=== PATIENT | female | born 1965 | race Caucasian/White ===

== ENCOUNTER 2024-05-06 09:23 | Outpatient (REF) | payer OTHER, SELFPAY ==
[2024-05-06 18:13] LABS: MANUAL DIFF FLAG NO
[2024-05-06 18:30] LABS: Alanine Aminotransferase 23 U/L (0-31); Aspartate Amino Transferase 28 U/L (5-31); Basophils Percent Auto 0.7 % (0-2); C Reactive Protein < 0.10 mg/dL (< or = 0.50); Eosinophils Absolute Auto 0.1 X10*3/uL (0.0-0.4); Eosinophils Percent Auto 1.3 % (0-4); Estimated Glomerular Filt Rate > 60; Hematocrit 40.7 % (37.0-47.0); Hemoglobin 13.2 g/dl (12.0-16.0); Imm Gran Abs Auto 0.01 X10*3/uL (0.00-0.03); Imm Gran Pct Auto 0.2 % (0.0-0.4); Lymphocytes Absolute Auto 1.9 X10*3/uL (1.2-4.9); Lymphocytes Percent Auto 33.8 % (20-40); Mean Corpuscular HGB Conc 32.4 g/dl (31.0-35.0); Mean Corpuscular Volume 89.5 fL (80.0-98.0); Monocytes Absolute Auto 0.6 X10*3/uL (0.1-1.2); Monocytes Percent Auto 10.3 % (2-11); Neutrophils Percent Auto 53.7 % (45-73); Platelet Count 211 X10*3/uL (160-400); Red Blood Count 4.55 X10*6/uL (4.20-5.50); Red Cell Distribution Width 13.3 % (11.0-16.0); White Blood Count 5.5 X10*3/uL (4.8-10.8)
[2024-05-06 19:38] LABS: Erythrocyte Sedimentation Rate 9 MM/HR (0-20)
== END 2024-05-06 09:24 | disposition home or self-care (01) ==
LOC: HO.HKASLDS 09:23
PROVIDERS: PCP Internal Medicine; Visit Provider Internal Medicine Rheumatology
DX: M19.049 Primary osteoarthritis, unspecified hand (principal); Z79.60 Long term (current) use of unspecified immunomodulators and immunosuppressants
CPT/HCPCS: 36415; 82565; 84450; 84460; 85025; 85652; 86140; 99212

== ENCOUNTER 2024-05-06 09:23 | Outpatient (AMB) | payer OTHER, SELFPAY ==
--- OUTSIDE RECORDS SUMMARY | 2024-05-06 09:38 | XMS_ITS | Patient Health Record ---
Author Organization [facility] Address [address] [place] [address] Care Team Providers Care Aircraft Inspection Record Clerk Name Role Phone Bonnie Nicole Primary Care Provider UnavailAisha Howard Unavailable [phone] Reason For Referral No Information Encounters Encounter Location Date Provider Diagnosis [facility] [address] [place] [address] 05/20/2023 Aisha Hill Plan Of Treatment No Information
--- OUTSIDE RECORDS SUMMARY | 2024-05-06 09:38 | XMS_ITS ---
Author Organization [facility] Address [address] [place] [address] Care Team Providers Care Fisher Mussel Name Role Phone Bonnie Nicole Primary Care Provider Unavailabl Aisha Schaeffer [phone] Encounters Encounter Location Date Provider Diagnosis [address] [place] [address] 07/01/2023 Aisha Hill Plan Of Treatment No Information Progress Notes * REMYHugh MCKAYGisselOB:1965 (58 yo F)Acc No.[id number]:07/01/2023 Progress Notes Patient:?Lynn IGNACIO Provider:?Aisha Hill DPM :1965???Age:57 Y???Sex:Female D ate:07/01/2023 Phone: Address:[address] [place] [address], [place] Pcp:Bonnie Nicole Subjective: * Chief Complaints: * ??? * Medical History:? Objective: * Vitals:? Assessment: Plan: * Treatment: * Images: * The named appointment provid er may or may not be the originator of this progress note, and it is not deemed complete until electronically signed by the appointment provider. Sign off status: Pending * Provider:?Aisha Hill DPM Date:?2023 Generated for Deedee king/Lashay/Dandresmitting on:?05/06/2024 09:38 AM EST
--- OUTSIDE RECORDS SUMMARY | 2024-05-06 09:38 | XMS_ITS ---
Author Organization [facility] Address [address] [place] [address] Care Team Providers Care Manager User Interface Name Role Phone Bonine Nicole Primary Care Provider Unavailabl e Black, Aisha Unavailable [phone] REASON FOR VISIT cx 07/01/2023 INSTRUCTIONAL SUPPORT ASSISTANT appt Encounters Encounter Location Date Provider Diagnosis [facility] [address] [place] [address] 05/20/2023 Aisha Black Plan Of Treatment No Information Progress Notes * Shine IGNACIOOB:1965 (57 yo F)Acc No.[id number]:05/20/2023 Patient:?Lynn Ignacio :1965???Age:57 Y???Sex:Female Phone: Address:[address] [place] [address], [place], [address] * true * Date:? Generated for Brooki christine/Lashay/eTransmitting on:?05/06/2024 09:38 AM EST
--- NOTE | 2024-05-06 09:42 | MHC.OFFVIS ---
Vital Signs 05/06/24 09:44 Height 5 ft 8 in Weight 148 lb BMI 22.5 BP 110/66 Blood Pressure Location Lt brachial Position Sitting Pulse 82 Pulse Source Pulse Oximeter Pulse Oximetry (%) 96 Oxygen Delivery Method Room Air Intake Visit Reasons: arthritis Intake Note: Patient presents for follow up on osteoarthritis. Allergies cefaclor [From Ceclor] Allergy (Mild, Verified 05/06/24 09:49) Rash cillins Allergy (Mild, Uncoded 05/06/24 09:49) Hives scopalamine Allergy (Mild, Uncoded 05/06/24 09:49) deliriam HPI HPI arthritis: Details: She is having pain everywhere. She lost 40 lb with zip bound. Increased pain in her shoulders, elbows, PIP knees and thumbs. She had no benefit with restarting Celebrex 200 mg twice a day. She has not started aquatic therapy but plans to. She reports in the past she was on gabapentin 800 mg 3 times a day but it was reduced to 600 mg twice a day. She did not tolerate it 800 mg twice a day due to increase fatigue during the day. Lyrica or duloxetine caused hand swelling. She currently he is in the process of getting a new PCP. [facility] Surgical History (Updated 05/06/24 @ 09:56 by Rach Lopez [facility]) S/P foot surgery, right H/O: hysterectomy H/O neck surgery Previous back surgery Review of Systems Const All systems reviewed & are unremarkable except as noted in HPI and below Physical Exam Vital Signs: Last Vital Signs Pulse 82 05/06/24 09:44 BP 110/66 05/06/24 09:44 Pulse Ox 96 05/06/24 09:44 Oxygen Delivery Method Room Air 05/06/24 09:44 BMI result Body Mass Index 22.5 Const Other: General: Comfortable CVS: RRR Respiratory: clear to auscultation bilaterally. Good respiratory effort Skin: No lesions seen MSK: Diffuse allodynia of all extremities. No synovitis. Tender PIP bilateral. Shoulder abduction 170 degree bilateral. She has good internal external rotation. Bilateral trochanteric bursitis found. Limited full external rotation of bilateral hips due to pain. Preserved range of motion of knees. Assessment & Plan Assessment & Plan (1) Osteoarthritis, hand, primary localized: Comment: Uncontrolled on Celebrex. Code(s): M19.049 - Primary osteoarthritis, unspecified hand Category: Medical Qualifiers: Laterality: unspecified laterality Qualified Code(s): M19.049 - Primary osteoarthritis, unspecified hand Plan: Change Celebrex to nabumetone 500 mg twice a day with food. If she does not find benefit on current dose of nabumetone, she will call office. I will then increase dose of nabumetone to 750 mg twice a day Labs for drug monitoring on chronic NSAID due today Return to clinic in 3 months (2) Fibromyalgia: Comment: Uncontrolled. Diffuse allodynia is consistent with pain from fibromyalgia. She is currently on gabapentin. She is in the process of getting a new PCP. Code(s): M79.7 - Fibromyalgia Category: Medical Plan: She will continue gabapentin 600 mg in the morning. I will increase gabapentin evening dose to 800 mg PCP follow-up for consideration of neuropsychiatric medication that is indicated for fibromyalgia management. Combination treatment with gabapentin can be effective. She will resume aquatic therapy. We discussed the importance of exercise but not being too aggressive with it to control fibromyalgia Return to clinic in 3 months (3) Polymyalgia rheumatica: Comment: In remission off of prednisone. Code(s): M35.3 - Polymyalgia rheumatica Category: Medical Plan: Monitoring clinically. I have ordered ESR and CRP level Return to clinic in 3 months Orders: Orders C Reactive Protein 05/06/24 M19.049 - Primary osteoarthritis, unspecified hand Alanine Aminotransferase 05/06/24 Z79.60 - senior living (current) use of unspecified immunomodulators and immunosuppressants Aspartate Amino Transferase 05/06/24 Z79.60 - remote computer terminal operator (current) use of unspecified immunomodulators and immunosuppressants Creatinine 05/06/24 Z79.60 - remote computer terminal operator (current) use of unspecified immunomodulators and immunosuppressants Complete Blood Count Auto Diff 05/06/24 Z79.60 - senior living (current) use of unspecified immunomodulators and immunosuppressants Erythrocyte Sedimentation Rate 05/06/24 M19.049 - Primary osteoarthritis, unspecified hand Medications: New gabapentin Take 1 tablet daily at bedtime. She has 600mg tablet to take in the morning. 800 mg PO BEDTIME 30 tabs 2RF nabumetone Take it with food 500 mg PO BID 60 tabs 2RF Coding Level of Care Code Est Pt Level 4 (00735) Complex EM visit Add On G2211 Diagnoses Localized, primary osteoarthritis of hand, unspecified laterality M19.049 Laterality: unspecified laterality Fibromyalgia M79.7 Polymyalgia rheumatica M35.3
[2024-05-06 09:44] VITALS: BP 110/66; PULSE 82; O2SAT 96; BMI 22.5
== END 2024-05-06 10:47 | disposition home or self-care (01) ==
PROVIDERS: PCP Internal Medicine; Visit Provider Internal Medicine Rheumatology
DX: M19.049 Primary osteoarthritis, unspecified hand (principal); M79.7 Fibromyalgia; M35.3 Polymyalgia rheumatica
CPT/HCPCS: 99214; G2211

== ENCOUNTER 2024-08-05 08:50 | Outpatient (AMB) | payer OTHER, SELFPAY ==
--- NOTE | 2024-08-05 08:52 | MHC.OFFVIS ---
Vital Signs 08/05/24 08:54 Height 5 ft 8 in Weight 164 lb 4 oz BMI 25.0 BP 106/70 Pulse 83 Pulse Source Pulse Oximeter Pulse Oximetry (%) 100 Oxygen Delivery Method Room Air Intake Visit Reasons: 3mon follow-up Intake Note: Patient presents for follow up on osteoarthritis. Allergies cefaclor [From Ceclor] Allergy (Mild, Verified 08/05/24 08:55) Rash cillins Allergy (Mild, Uncoded 05/06/24 09:49) Hives scopalamine Allergy (Mild, Uncoded 05/06/24 09:49) deliriam HPI HPI 3mon follow-up: Details: Nabumatone and increase in gabapatient helped. COntinues to have left shoulder pain with nocturnal pain. Goes to aquatic therapy. No PMR or GCA symptoms PFSH Surgical History S/P foot surgery, right H/O: hysterectomy H/O neck surgery Previous back surgery Review of Systems Const All systems reviewed & are unremarkable except as noted in HPI and below Physical Exam Vital Signs: Last Vital Signs Pulse 83 08/05/24 08:54 BP 106/70 08/05/24 08:54 Pulse Ox 100 08/05/24 08:54 Oxygen Delivery Method Room Air 08/05/24 08:54 BMI result Body Mass Index 25.0 Const Other: General: Comfortable CVS: RRR Respiratory: clear to auscultation bilaterally. Good respiratory effort Skin: No lesions seen MSK: No synovitis. Shoulder abduction 170 degree bilateral. Left shoulder anterior pain and subacromial region. She has good internal external rotation. Bilateral trochanteric bursitis found. Limited full external rotation of bilateral hips due to pain. Preserved range of motion of knees. Office Procedures AMB Joint Injection/Aspiration Joint Injection/Aspiration Details: Left shoulder subacromial bursa Prep: site was prepped using aseptic technique Injected: 40 mg of, Kenalog, with 1 mL of and 1% plain lidocaine Procedure: The patient tolerated the procedure well. Postprocedure protocol was discussed with patient. Coding 25210 - Large joint Procedure code (CPT) selection complete AMB Joint Injection/Aspiration Joint Injection/Aspiration Details: Left shoulder joint Prep: site was prepped using aseptic technique Injected: 40 mg of, Kenalog, with 1 mL of and 1% plain lidocaine Procedure: The patient tolerated the procedure well. Postprocedure protocol was discussed with patient. Coding 17834 - Large joint Procedure code (CPT) selection complete Office Meds lidocaine (PF) 10 mg/mL (1 %) injection solution Performing Provider: Dany Mayer MD Performing Location: [facility] [place] [facility] Administered by: Dany Mayer MD on 08/05/24 21:57 Dose Route Admin Location Dispensed Lot Number Expiration Date [facility] [employer] 10 mg Infiltration 2 mL [id number] [employer] Kenalog 40 mg/mL suspension for injection Performing Provider: Dany Mayer MD Performing Location: [facility] [place] [facility] Administered by: Dany Mayer MD on 08/05/24 21:57 Dose Route Admin Location Dispensed Lot Number Expiration Date [place] [employer] 40 mg intrabursal 1 mL [id number] [facility] lidocaine (PF) 10 mg/mL (1 %) injection solution Performing Provider: Dany Mayer MD Performing Location: [facility] [place] [facility] Administered by: Dany Mayer MD on 08/05/24 21:57 Dose Route Admin Location Dispensed Lot Number Expiration Date [facility] Project [employer] 10 mg Infiltration 2 mL [id number] [employer] Kenalog 40 mg/mL suspension for injection Performing Provider: Dany Mayer MD Performing Location: [facility] [place] [facility] Administered by: Dany Mayer MD on 08/05/24 21:57 Dose Route Admin Location Dispensed Lot Number Expiration Date [facility] Project [employer] 40 mg intra-articular 1 mL [id number] [employer] Assessment & Plan Assessment & Plan (1) Subacromial bursitis of left shoulder joint: Comment: Pain is uncontrolled. Code(s): M75.52 - Bursitis of left shoulder Category: Medical Plan: Patient received cortisone injection to left subacromial bursa Continue nabumetone 500 mg twice a day Return to clinic in 3 months (2) Tendinitis of left rotator cuff: Comment: Pain is uncontrolled Code(s): M75.82 - Other shoulder lesions, left shoulder Category: Medical Plan: Patient received cortisone injection to left glenohumeral joint Continue nabumetone 500 mg twice a day Return to clinic in 3 months (3) intermediate project manager (current) use of non-steroidal anti-inflammatories (nsaid): Code(s): Z79.1 - intermediate project manager (current) use of non-steroidal anti-inflammatories (NSAID) Category: Medical Plan: Continue nabumetone 500 mg twice a day Labs for drug monitoring on chronic NSAID ordered Return to clinic in 3 months (4) Polymyalgia rheumatica: Comment: In remission off of prednisone. 04/2024 inflammatory markers normal. Code(s): M35.3 - Polymyalgia rheumatica Category: Medical Plan: Monitor clinically Inflammatory markers ordered Return to clinic in 3 months (5) Fibromyalgia: Comment: Better controlled with higher dose of gabapentin and changing NSAID from Celebrex to nabumetone. She continues to have diffuse allodynia on exam. I recommend that she follow up with PCP for further management and improved control with consideration of up titration of gabapentin as she tolerates. Code(s): M79.7 - Fibromyalgia Category: Medical Plan: Defer to PCP Orders: Orders Alanine Aminotransferase Today M75.52 - Bursitis of left shoulder, M75.82 - Other shoulder lesions, left shoulder Aspartate Amino Transferase Today Z79.1 - longterm (current) use of non-steroidal anti-inflammatories (NSAID) AMB Joint Injection/Aspiration Today M75.82 - Other shoulder lesions, left shoulder Creatinine Today Z79.1 - intermediate project manager (current) use of non-steroidal anti-inflammatories (NSAID) Erythrocyte Sedimentation Rate Today Z79.899 - Other watermaster (current) drug therapy C Reactive Protein Today Z79.899 - Other watermaster (current) drug therapy AMB Joint Injection/Aspiration Today M75.52 - Bursitis of left shoulder XR shoulder LT min 2V Today M75.82 - Other shoulder lesions, left shoulder XR shoulder RT min 2V Today M75.82 - Other shoulder lesions, left shoulder Medications: New lidocaine (PF) 10 mg Infiltration ONCE 1 mL 0RF M75.82 - Other shoulder lesions, left shoulder Kenalog (triamcinolone acetonide) 40 mg intra-articular ONCE 1 mL 0RF NS M75.82 - Other shoulder lesions, left shoulder lidocaine (PF) 10 mg Infiltration ONCE 1 mL 0RF M75.52 - Bursitis of left shoulder Kenalog (triamcinolone acetonide) 40 mg intrabursal ONCE 1 mL 0RF NS M75.52 - Bursitis of left shoulder Refilled nabumetone Take it with food 500 mg PO BID 60 tabs 2RF Coding Level of Care Code Est Pt Level 4 (12562) Complex EM visit Add On G2211 Diagnoses Subacromial bursitis of left shoulder joint M75.52 Tendinitis of left rotator cuff M75.82 intermediate project manager (current) use of non-steroidal anti-inflammatories (nsaid) Z79.1 Polymyalgia rheumatica M35.3 Fibromyalgia M79.7 CPT Codes Coding - 08187 Large joint: 95722 - Large joint ([id number]) Coding - 80065 Large joint: 16374 - Large joint ([id number])
[2024-08-05 08:54] VITALS: BP 106/70; PULSE 83; O2SAT 100; BMI 25.0
--- OUTSIDE RECORDS SUMMARY | 2024-08-05 09:17 | XMS_ITS | Clinical Summary ---
Author Organization [facility] Address [address] [id number] Care Team Providers Care Ebd Special Education Teacher Name Role Phone Unavailable Primary Care Provider Unavailabl e Social History Tobacco Use Types Packs/Day Years Used Date Smoking Tobacco: Never Assessed Comments Unknown Sex and Gender Information Value Date Recorded Sex Assigned at Not on file Legal Sex Female 2:49 AM EDT Gender Identity Not on file Sexual Orientation Not on file Plan of Treatment Health Maintenance Due Date Last Done Comments Hepatitis C Screening 1964 Pap Smear 1980 DTaP/Tdap/Td (1 - Tdap) 1982 Hep B (1 of 3 - 19+ 3-dose series) 08/10/1983 Mammogram/Breast Imaging 2004 Pneumococcal 50+ years (1 of 1 - PCV) 2014 Zoster (Shingrix) (1 of 2) 2014 COVID-19 Vaccine (2023-2 5 season) 2023 Influenza (#1) 2023 HPV Vaccine Aged Out No longer eligi ble based on patient's age to complete this topic Hep A Aged Out No longer eligi ble based on patient's age to complete this topic Hib Aged Out No longer eligi ble based on patient's age to complete this topic Meningococcal ACWY Aged Out No longer eligible based on patient's age to complete this topic
--- OUTSIDE RECORDS SUMMARY | 2024-08-05 09:18 | XMS_ITS | Referral Summary ---
Author Organization [facility] Address [address] [place] [address] Care Team Providers Care Lubricating Engineer Name Role Phone Bonnie Nicole Primary Care Provider [phone] Allergies Active Allergy Reactions Criticality Noted Date Comments Amoxicillin Unknown 07/21/2023 Cefaclor Rash Metronidazole Rash Penicillins Rash Scopolamine Rash Medications PARoxetine (PAXIL) 40 mg tablet Take 40 mg by mouth every morning. Active gabapentin (NEURONTIN) 600 mg tablet Take 600 mg by mouth 2 times a day. 07/08/2023 Active celecoxib (CeleBREX) 200 mg capsule Take 200 mg by mouth 2 times a day. 06/03/2023 Active zolpidem (AMBIEN) 5 mg tablet Take 5 mg by mouth nightly as needed. Active metoprolol succinate XL (TOPROL XL) 50 mg tablet Take 50 mg by mouth once a day. 06/27/2023 Active omeprazole (PriLOSEC) 40 mg capsule Take 40 mg by mouth once a day. Active cholecalciferol (VITAMIN D3) 2,000 unit capsule Take 1 capsule by mouth once a day. 12/15/2014 Active traMADoL (ULTRAM) 50 mg tablet Take 50 mg by mouth every 6 hours as needed. 06/25/2023 Active magnesium gluconate (MAGONATE) 27 mg magnesium (500 mg) tablet Take 500 mg by mouth once a day. Active Active Problems Problem Noted Date Diagnosed Date Leg mass, left 07/21/2023 Cervical radiculopathy at C7 02/11/2014 Cervical segment dysfunction 02/11/2014 Cervical spondylosis 02/11/2014 Carpal tunnel syndrome, right 02/11/2014 Social History Tobacco Use Types Packs/Day Years Used Date Smoking Tobacco: Never Smokeless Tobacco: Never Tobacco Cessation:Counseling Given: Not Answered Comments:: Alcohol Use Standard Drinks/Week Comments Yes 0 (1 standard drink = 0.6 oz pur e alcohol) Comments Unknown Sex and Gender Information Value Date Recorded Sex Assigned at Female 04/28/2023 9:19 AM EST Legal Sex Female 12:11 AM EDT Gender Identity Female 04/28/2023 9:19 AM EST Sexual Orientation Straight 04/28/2023 9: 19 AM EST Last Filed Vital Signs Vital Sign Reading Time Taken Comments Blood Pressure 118/68 07/21/2023 1:54 PM EDT Pulse 86 07/21/2023 1:54 PM EDT Temperature 36.1 ??C (96.9 ??F) 07/21/2023 1:54 PM ED T Respiratory Rate - - Oxygen Saturation 98% 07/21/2023 1:54 PM EDT Inhaled Oxygen Concentration - - Weight 96.2 kg (212 lb) 07/21/2023 1:54 PM EDT Height 172.7 cm (5' 8 ) 07/21/2023 1:54 PM EDT Body Mass Index 32.23 07/21/2023 1:54 PM EDT Plan of Treatment Not on file Insurance [facility] Care Teams Lubricating Engineer Relationship Specialty Start Date End Date Bonnie Nicole [address] [place] [address] PCP - General 04/15/23
--- OUTSIDE RECORDS SUMMARY | 2024-08-05 09:18 | XMS_ITS | Clinical Summary ---
Author Organization [facility] Address [address] [place] [address] Care Team Providers Care Live Games Dealer Name Role Phone Unknown, Primary Care Provider Unavailabl e Social History Tobacco Use Types Packs/Day Years Used Date Smoking Tobacco: Never Assessed Sex and Gender Information Value Date Recorded Sex Assigned at Not on file Gender Identity Not on file Sexual Orientation Not on file Job Start Date Occupation Industry Not on file Not on file Not on file Plan of Treatment Health Maintenance Due Date Last Done Comments Hepatitis B Vaccines (1 of 3 - 3-dose series) 1965 Hepatitis C Screening 1964 COVID-19 Vaccine (#1) 02/08/1965 Depression Screening 1976 Preventative Health Evaluation 1982 Cervical Cancer Screening (Pap Smear) 1985 Colon Cancer Screening (Colonoscopy) 2009 Breast Cancer Screening (Mammogram) 2014 Shingrix-Zoster Vaccine (1 of 2) 2014 DTap / Tdap / Td (2 - Td or Tdap) 04/28/2020 04/28/2010 Influenza Vaccine (#1) 2023 , 02/19/2020, 03/01/2019, Additional history exists Pneumococcal Vaccine Aged Out No long er eligible based on patient's age to complete this topic RSV Ped < 20 months Aged Out No longe r eligible based on patient's age to complete this topic Care Teams Live Games Dealer Relationship Specialty Start Date End Date Unknown, PCP - General 01/07/23
--- OUTSIDE RECORDS SUMMARY | 2024-08-05 09:18 | XMS_ITS | Patient Health Record ---
Author Organization [facility] Address [address] [place] [address] Care Team Providers Care Medical Device Assembler Name Role Phone Bonnie Nicole Primary Care Provider Unavailabl e Black, Aisha Unavailable [phone] Reason For Referral No Information Plan Of Treatment No Information
--- OUTSIDE RECORDS SUMMARY | 2024-08-05 09:18 | XMS_ITS | Clinical Summary ---
Author Organization [facility] Address [address] [place] [address] Care Team Providers Care Gold Beater Name Role Phone Bonnie Nicole Primary Care Provider [phone] Allergies Active Allergy Reactions Criticality Noted Date [...] spondylosis 02/11/2014 Carpal tunnel syndrome, right 02/11/2014 Family History Medical History Relation Name Comments Breast cancer Maternal Grandmother Breast cancer Mother Relation Name Status Comments Maternal Grandmother Mother Alive Social History Tobacco Use Types Packs/Day Years [...] 07/21/2023 1:54 PM EDT Plan of Treatment Health Maintenance Due Date Last Done Comments Cervical Cancer Screening 1965 Colonoscopy 1964 FOBT / Fit Test 1964 HIV Screening 1965 HPV and Pap Smear 1964 Pap Smear 1964 Sigmoidoscopy 1964 Hepatitis B Vaccines (1 of 3 - 19+ 3-dose series) 08/10/1983 Pneumococcal Vaccine: 50+ Ye ars (1 of 1 - PCV) 2014 Zoster Vaccines (1 of 2) 2014 DTaP,Tdap,and Td Vaccines (2 - Td or Tdap) 07/31/2021 08/01/2011 Alcohol/Substance Use Screening 04/28/2024 Influenza Vaccine (Season Ended) 2024 Cologuard 12/31/2025 12/31/2022, 12/31/2022 Colon Cancer Screening 12/31/2025 RSV Vaccine (60+ years old a nd patients) (1 - 1-dose 75+ series) 08/10/2039 Insurance [facility] Care Teams Gold Beater Relationship Specialty Start Date End Date Bonnie Nicole [address] [place] [address] PCP - General 04/15/23
--- OUTSIDE RECORDS SUMMARY | 2024-08-05 09:18 | XMS_ITS ---
Author Organization [facility] Address [address] [place] [address] Care Team Providers Care Motor Boss Name Role Phone Bonnie Nicole Primary Care Provider Unavailabl e Black, Aisha Unavailable [phone] REASON FOR VISIT cx 07/01/2023 PURCHASING AGENT appt Encounters Encounter Location Date Provider Diagnosis [facility] [address] [place] [address] 05/20/2023 Aisha Black Plan Of Treatment No Information Progress Notes * Shine IGNACIOOB:1965 (57 yo F)Acc No.[id number]:05/20/2023 Patient:?Lynn Ignacio :1965???Age:57 Y???Sex:Female Phone: Address:[address] [place] [address], [place], [address] * true * Date:? Generated for Brooki christine/Lashay/eTransmitting on:?08/05/2024 09:18 AM EDT
== END 2024-08-05 09:53 | disposition home or self-care (01) ==
LOC: HO.RHES 08:50
PROVIDERS: PCP Internal Medicine; Visit Provider Internal Medicine Rheumatology
DX: M75.52 Bursitis of left shoulder (principal); M75.82 Other shoulder lesions, left shoulder; Z79.1 Long term (current) use of non-steroidal anti-inflammatories (NSAID); M35.3 Polymyalgia rheumatica; M79.7 Fibromyalgia
CPT/HCPCS: 20610; 99214

== ENCOUNTER 2024-08-05 08:50 | Outpatient (REF) | payer OTHER, SELFPAY ==
--- OUTSIDE RECORDS SUMMARY | 2024-08-05 10:50 | XMS_ITS ---
Author Organization [facility] Address [address] [place] [id number] Care Team Providers Care Personal Care Aide Name Role Phone Bonnie Nicole Primary Care Provider Unavailabl Aisah Schaeffer [phone] Encounters Encounter Location Date Provider Diagnosis [address] [place] [address] 07/01/2023 Aisha Hill Plan Of Treatment No Information Progress Notes * REMYJOSE C HughGisselOB:1965 (58 yo F)Acc No.[id number]:07/01/2023 Progress Notes Patient:?Lynn IGNACIO Provider:?Aisha Hill DPM :1965???Age:57 Y???Sex:Female D ate:07/01/2023 Phone: Address:[address] [place] [address], [place] Pcp:Bonnie Nicole Subjective: * Chief Complaints: * ??? * Medical History:? Objective: * Vitals:? Assessment: Plan: * Treatment: * Images: * The named appointment provid er may or may not be the originator of this progress note, and it is not deemed complete until electronically signed by the appointment provider. Sign off status: Pending * Provider:?Aisha Hill DPM Date:?2023 Generated for Deedee king/Lashay/eTlionelsmitting on:?08/05/2024 10:50 AM EDT
--- OUTSIDE RECORDS SUMMARY | 2024-08-05 10:50 | XMS_ITS | Clinical Summary ---
Author Organization [facility] Address [address] [place] [address] Care Team Providers Care Early Childhood Education Worker Name Role Phone Bonnie Nicole Primary Care Provider [phone] Allergies Active Allergy Reactions Criticality Noted Date Comments Amoxicillin Rash Low 01/24/2019 Cefaclor Rash Low 01/24/2019 Scopolamine Other (See Comments) 01/24/2019 Put her in a stupor Medications PARoxetine (PAXIL) 40 MG tablet 9 Active BUTRANS 5 mcg/hour ptwk APPLY 1 PATCH TOPICALLY EVERY 7 DAYS 1 9 Active metoprolol (TOPROL-XL) 25 MG 24 hr tablet 9 Active omeprazole (PriLOSEC) 40 MG capsule 9 Active topiramate (TOPAMAX) 100 MG tablet TAKE 1 TABLET BY MOUTH 3 TIMES A DAY 3 9 Active Social History Tobacco Use Types Packs/Day Years Used Date Smoking Tobacco: Never Smokeless Tobacco: Never Comments No Sex and Gender Information Value Date Recorded Sex Assigned at Not on file Legal Sex Female 11:05 AM EDT Gender Identity Not on file Sexual Orientation Not on file Last Filed Vital Signs Vital Sign Reading Time Taken Comments Blood Pressure 128/76 01/24/2019 11:28 AM EDT Pulse 83 01/24/2019 11:28 AM EDT Temperature 36.7 ??C (98 ??F) 01/24/2019 11:28 AM EDT Respiratory Rate 14 01/24/2019 11:28 AM EDT Oxygen Saturation 97% 01/24/2019 11:28 AM EDT Inhaled Oxygen Concentration - - Weight 92.1 kg (203 lb) 01/24/2019 11:28 AM EDT Height 172.7 cm (5' 8 ) 01/24/2019 11:28 AM EDT Body Mass Index 30.87 01/24/2019 11:28 AM EDT Plan of Treatment Health Maintenance Due Date Last Done Comments Colorectal Cancer: COLONOSCO PY Screening every 10 yrs (or Modifier) 1964 Depression: Screening Annual ly using PHQ-2/9 in Adults 18 yrs or above (or HM Modifier)([facility]) 1982 Hepatitis C Virus Infection in Adolescents and Adults: Screening (or Modifier) ([facility]) 1982 DAE Screening: Once using ST OP-BANG Questionnaire for Adults with Conditions or high BMI([facility]) 1982 SDOH Screening Reminder: Tiffanie lovell for all adults ([facility]) 1982 Tobacco Smoking Cessation: i n Adults excluding Women: Behavioral and Pharmacotherapy Interventions ([facility]) 1982 DTaP/Tdap/Td Vaccines ([facility]) (1 - Tdap) 08/10/1983 Cervical Cancer Screenin 1-65 yrs of age (or Modifier) 1985 Cervical Cancer Screening: P ap every 3 yrs pts age 21-65 1985 Cervical Cancer: Pap Screeni ng with Modifier timing ([facility]) 1985 Cervical Cancer: hrHPV alone or with cotesting Pap for Pts 30-65yrs screening every 5yrs ([facility]) 1985 Colorectal Cancer Screening 45 -75 Yrs (or HM Modifier) 2009 Colorectal Cancer: FLEXIBLE SIGMOIDOSCOPY Screening every 5 yrs 2009 Colorectal Cancer: Fecal Immunochemical Test (FIT) Annually [facility] 2009 Colorectal Cancer: High-sens itivity gFOBT Screening Annually [facility] 2009 Colorectal Cancer: Stool Col oguard Screening every 3 yrs 2009 Colorectal Cancer:CT Colonog lashaun Screening every 5 yrs 2009 Lipid Screening: Every 5 yrs for Women aged 45+ (or HM Modifier) ([facility]) 2010 Breast Cancer: Screening Tiffanie u[place]glenn age 50-74 yrs (or HM Modifier)([facility]) 2014 Zoster/Shingles Vaccine Seri es Screening: Adults aged 18+ yrs (or HM Modifiers)([facility]) (1 of 2) 2014 Flu Vaccination: Yearly for ages 18mos through 64 years (or Modifier)([facility]) 11/27/2023 COVID-19 Vaccine Screening: Initial Series and Booster Status ([facility]) (2023-25 season) 2023 Pneumococcal Vaccination Scr eening: Pts 0-19 & 19-49 yrs of age ([facility]) Aged Out No longer eligible based on patient's age to complete this topic Medical Devices Not on file Insurance [facility] Care Teams Early Childhood Education Worker Relationship Specialty Start Date End Date Bonnie Nicole PA [address] [facility] [phone] PCP - Utility Operator 01/24/19
--- OUTSIDE RECORDS SUMMARY | 2024-08-05 10:50 | XMS_ITS | Clinical Summary ---
Author Organization [facility] Address [address] [id number] Care Team Providers Care Batch Unit Treater Name Role Phone Unavailable Primary Care Provider [...]
--- OUTSIDE RECORDS SUMMARY | 2024-08-05 10:51 | XMS_ITS | Clinical Summary ---
Author Organization [facility] Address [address] [place] [address] Care Team Providers Care Production Welder Name Role Phone Bonnie Nicole Primary Care Provider Allergies Active Allergy Reactions Criticality Noted Date [...] (1 - 1-dose 75+ series) 08/10/[address] [facility] Care Teams Production Welder Relationship Specialty Start Date End Date Bonnie Nicole [address] [place] [address] PCP - General 04/15/23
--- OUTSIDE RECORDS SUMMARY | 2024-08-05 10:51 | XMS_ITS | Referral Summary ---
Author Organization [facility] Address [address] [place] [address] Care Team Providers Care Wind Site Manager Name Role Phone Bonnie Nicole Primary Care Provider [phone] Allergies Active Allergy Reactions Criticality Noted Date [...] Plan of Treatment Not on file Insurance [facility] Care Teams Wind Site Manager Relationship Specialty Start Date End Date Bonnie Nicole [address] [place] [address] PCP - General 04/15/23
--- OUTSIDE RECORDS SUMMARY | 2024-08-05 10:51 | XMS_ITS | Clinical Summary ---
Author Organization [facility] Address [address] [place] [address] Care Team Providers Care Circulation Assistant Name Role Phone Unknown, Primary Care Provider [...] age to complete this topic Care Teams Circulation Assistant Relationship Specialty Start Date End Date Unknown, PCP - General 01/07/23
[2024-08-05 18:12] LABS: Alanine Aminotransferase 19 U/L (0-31); Aspartate Amino Transferase 24 U/L (5-31); C Reactive Protein < 0.04 mg/dL (< or = 0.50); Estimated Glomerular Filt Rate > 60
[2024-08-05 18:50] LABS: Erythrocyte Sedimentation Rate 8 MM/HR (0-20)
== END 2024-08-05 08:51 | disposition home or self-care (01) ==
LOC: HO.HKASLDS 08:50
PROVIDERS: PCP Internal Medicine; Visit Provider Internal Medicine Rheumatology
DX: M75.52 Bursitis of left shoulder (principal); M75.82 Other shoulder lesions, left shoulder; Z79.1 Long term (current) use of non-steroidal anti-inflammatories (NSAID); Z79.899 Other long term (current) drug therapy
CPT/HCPCS: 20610; 36415; 82565; 84450; 84460; 85652; 86140; 99212; J2003; J3300

== ENCOUNTER 2024-11-09 08:34 | Outpatient (REF) | payer OTHER, SELFPAY ==
--- NOTE | ~2024-11-09 | XR_ITS ---
EXAMINATION: XR SHOULDER, LEFT CLINICAL INFORMATION: M25.512 - Pain in left shoulder COMPARISON: None available. TECHNIQUE: AP external rotation, Grashey, scapular Y, and axillary views of the left shoulder. FINDINGS: There is no AC joint separation. There is mild degenerative change with osteophytes involving the acromion at the AC joint. Glenohumeral joint demonstrates a small marginal osteophyte involving medial humeral head. There is no dislocation. No fracture line is evident. XR/XR shoulder LT min 2V IMPRESSION: Mild degenerative changes of the A.C. and glenohumeral joints. Electronically signed by: Khoa Astudillo MD 11/09/2024 11:32 AM EDT
[2024-11-09 14:37] LABS: Alanine Aminotransferase 23 U/L (0-31); Aspartate Amino Transferase 26 U/L (5-31); Estimated Glomerular Filt Rate > 60
== END 2024-11-09 08:35 | disposition home or self-care (01) ==
LOC: HO.HKASLDS 08:34
PROVIDERS: PCP Internal Medicine; Visit Provider Internal Medicine Rheumatology
DX: G89.29 Other chronic pain (principal); M25.512 Pain in left shoulder; M75.52 Bursitis of left shoulder; M75.82 Other shoulder lesions, left shoulder; M79.7 Fibromyalgia; M35.3 Polymyalgia rheumatica; Z79.1 Long term (current) use of non-steroidal anti-inflammatories (NSAID)
CPT/HCPCS: 36415; 73030; 82565; 84450; 84460; 99212

== ENCOUNTER 2024-11-09 08:34 | Outpatient (AMB) | payer OTHER, SELFPAY ==
--- OUTSIDE RECORDS SUMMARY | 2023-07-01 05:30 | XMS_ITS ---
Author Organization [facility] Address [address] [place] [phone] Care Team Providers Care Metal Weigher Name Role Phone Bonnie Nicole Primary Care Provider Unavailabl Aisha Schaeffer [phone] Encounters Encounter Location Date Provider Diagnosis [address] [place] [address] 07/01/2023 Aisha Hill Plan Of Treatment No Information Progress Notes * Shine IGNACIOOB:1965 (59 yo F)Acc No.[id number]:07/01/2023 Progress Notes Patient: Lynn DAWSON Provider: Jadiel Hill DPM :1965 A ge:57 Y S ex:Female Date:07/01/2023 Phone: Address:[address] [place] [address] Pcp:Bonnie Nicole Subjective: * Chief Complaints: * * Medical History: Objective: * Vitals: Assessment: Plan: * Treatment: * Images: * The named appointment provid er may or may not be the originator of this progress note, and it is not deemed complete until electronically signed by the appointment provider. Sign off status: Pending * Provider: Jadiel Hill DPM Date: 07/01/2023 Generated for Deedee king/Lashay/Sherlynitting on: 11/09/2024 08:39 AM EDT
--- NOTE | 2024-11-09 08:35 | MHC.OFFVIS ---
Vital Signs 11/09/24 08:36 Height 5 ft 8 in Weight 165 lb BMI 25.1 BP 120/80 Blood Pressure Location Rt brachial Position Sitting Pulse 79 Pulse Source Pulse Oximeter Pulse Oximetry (%) 97 Oxygen Delivery Method Room Air Intake Visit Reasons: 3 months Intake Note: Patient presents for follow up on osteoarthritis. Allergies cefaclor (From Ceclor) Allergy (Mild, Verified 11/09/24 08:36) Rash cillins Allergy (Mild, Uncoded 05/06/24 09:49) Hives scopalamine Allergy (Mild, Uncoded 05/06/24 09:49) deliriam HPI HPI 3 months: Details: She is experiencing left shoulder pain for at least a month. She has increased pain when her arm is on the steering wheel. Difficulty functioning with left shoulder. Nabumetone works better than Celebrex. Denies PMR flare. [facility] Surgical History S/P foot surgery, right H/O: hysterectomy H/O neck surgery Previous back surgery Physical Exam Vital Signs: Last Vital Signs Pulse 79 11/09/24 08:36 BP 120/80 11/09/24 08:36 Pulse Ox 97 11/09/24 08:36 Oxygen Delivery Method Room Air 11/09/24 08:36 BMI result Body Mass Index 25.1 Const Other: General: Comfortable Skin: No lesions seen MSK: No synovitis. Shoulder abduction 170 degree bilateral. Left shoulder anterior pain and posterior pain. She has good internal and external rotation but left shoulder range of motion is with pain. Bilateral trochanteric bursitis found. Limited full external rotation of bilateral hips due to pain. Preserved range of motion of knees. Assessment & Plan Assessment & Plan (1) Left shoulder pain: Comment: Chronic. Recently she was treated for rotator cuff tendonitis/impingement syndrome with cortisone injections July 2024. She has not had long-term benefit with cortisone injections with main pain localized to rotator cuff tendons. Cortisone injection provided relief in treating impingement syndrome. She continues to have functional difficulties. Low clinical suspicion for PMR flare. Inflammatory markers normal in July. She continues to do exercises at home. She has previously been to physical therapy for shoulder strengthening. She has some relief with nabumetone. X-ray left shoulder in 2021 was normal. Code(s): M25.512 - Pain in left shoulder Category: Medical Qualifiers: Chronicity: chronic Qualified Code(s): M25.512 - Pain in left shoulder; G89.29 - Other chronic pain Plan: MRI left shoulder ordered to rule out rotator cuff tear, which would necessitate surgical referral. X-ray left shoulder ordered to evaluate for joint pathology. She is agreeable to try physical therapy again Increase nabumetone 750 mg twice a day with food Labs for drug monitoring on chronic NSAID ordered Return to clinic in 3 months (2) Subacromial bursitis of left shoulder joint: Comment: Resolved with cortisone injection Code(s): M75.52 - Bursitis of left shoulder Category: Medical Plan: See above (3) Tendinitis of left rotator cuff: Comment: Pain is uncontrolled. Failed cortisone injection. Partial relief with nabumetone. Code(s): M75.82 - Other shoulder lesions, left shoulder Category: Medical Plan: See above (4) termite control service representative (current) use of non-steroidal anti-inflammatories (nsaid): Code(s): Z79.1 - termite control service representative (current) use of non-steroidal anti-inflammatories (NSAID) Category: Medical Plan: Labs for disease monitoring chronic NSAID ordered (5) Polymyalgia rheumatica: Comment: In remission off of prednisone. 07/2024 inflammatory markers normal. Code(s): M35.3 - Polymyalgia rheumatica Category: Medical Plan: Monitor clinically Return to clinic in 3 months (6) Fibromyalgia: Comment: Better controlled with higher dose of gabapentin and changing NSAID from Celebrex to nabumetone. Code(s): M79.7 - Fibromyalgia Category: Medical Plan: Defer management to PCP Orders: Orders MR shoulder LT wo con Today M25.512 - Pain in left shoulder, M75.52 - Bursitis of left shoulder, M75.82 - Other shoulder lesions, left shoulder PT Evaluation and Treatment Today M75.82 - Other shoulder lesions, left shoulder Alanine Aminotransferase Today Z79.1 - termite control service representative (current) use of non-steroidal anti-inflammatories (NSAID) Creatinine Today Z79.1 - [facility]PC (current) use of non-steroidal anti-inflammatories (NSAID) XR shoulder LT min 2V Today M25.512 - Pain in left shoulder Aspartate Amino Transferase Today Z79.1 - termite control service representative (current) use of non-steroidal anti-inflammatories (NSAID) Medications: New nabumetone Take with food 750 mg PO BID 60 tabs 2RF Discontinued nabumetone Take it with food Discontinued Reason: Doctor's Order 500 mg PO BID 60 tabs 2RF Coding Level of Care Code Est Pt Level 4 (45533) Complex EM visit Add On G2211 Diagnoses Chronic left shoulder pain M25.512; G89.29 Chronicity: chronic Subacromial bursitis of left shoulder joint M75.52 Tendinitis of left rotator cuff M75.82 termite control service representative (current) use of non-steroidal anti-inflammatories (nsaid) Z79.1 Polymyalgia rheumatica M35.3 Fibromyalgia M79.7
[2024-11-09 08:36] VITALS: BP 120/80; PULSE 79; O2SAT 97; BMI 25.1
--- OUTSIDE RECORDS SUMMARY | 2024-11-09 08:39 | XMS_ITS | Clinical Summary ---
Author Organization [facility] Address [address] [place] [place] [address] Care Team Providers Care Stage Rigger Name Role Phone Bonnie Nicole Primary Care Provider [phone] Allergies Active Allergy Reactions Criticality Noted Date [...] 83 01/24/2019 11:28 AM EDT Temperature 36.7 C (98 F) 01/24/2019 11:28 AM EDT Respiratory Rate 14 [...] Adults 18 yrs or above (or HM Modifier)([facility]) 1982 Hepatitis C Virus Infection in Adolescents and Adults: Screening (or Modifier) ([facility]) 1982 DAE Screening: Once using ST OP-BANG Questionnaire for Adults with Conditions or high BMI([facility]) 1982 SDOH Screening Reminder: Tiffanie liliya for all adults ([facility]) 1982 Tobacco Smoking Cessation: i n Adults excluding Women: Behavioral and Pharmacotherapy Interventions ([facility]) 1982 DTaP/Tdap/Td Vaccines ([facility]) (1 - Tdap) 08/10/1983 Cervical Cancer Screenin 1-65 yrs of age (or Modifier) 1985 Cervical Cancer Screening: P ap every 3 yrs pts age 21-65 1985 Cervical Cancer: Pap Screeni ng with Modifier timing ([facility]) 1985 Cervical Cancer: hrHPV alone or with cotesting Pap for Pts 30-65yrs screening every 5yrs ([facility]) 1985 Colorectal Cancer Screening 45 -75 Yrs (or HM Modifier ) 2009 Colorectal Cancer: FLEXIBLE SIGMOIDOSCOPY Screening every 5 yrs 2009 Colorectal Cancer: Fecal Imm unochemical Test (FIT) Annually [facility] 2009 Colorectal Cancer: High-sens itivity gFOBT Screening Annually [facility] 2009 Colorectal Cancer: Stool Col oguard Screening every 3 yrs 2009 Colorectal Cancer:CT Colonography Screening every 5 yr s 2009 Breast Cancer: Screening Tiffanie liliya age 50-74 yrs (or HM Modifier)([facility]) 2014 Pneumococcal Vaccination Scr eening: Patients 50+ yrs of age ([facility]) (1 of 1 - PCV) 2014 Zoster/Shingles Vaccine Seri es Screening: Adults aged 18+ yrs (or HM Modifiers)([facility]) (1 of 2) 2014 COVID-19 Vaccine Screening: Initial Series and Booster Status ([facility]) (2023-25 season) 2023 Flu Vaccination: Yearly for ages 18mos through 64 years (or Modifier)([facility] ) 11/26/2024 RSV Vaccines (1 - 1-dose 75+ series) 08/10/2039 Medical Devices Not on file Insurance [facility] Care Teams Stage Rigger Relationship Specialty Start Date End Date Bonnie Nicole PA [address] [place] [phone] PCP - Supervisor Feed House 01/24/19
--- OUTSIDE RECORDS SUMMARY | 2024-11-09 08:39 | XMS_ITS | Clinical Summary ---
Author Organization [facility] Address [address] [id number] Care Team Providers Care Certified Coder Name Role Phone Unavailable Primary Care Provider [...] Smear 1980 DTaP/Tdap/Td (1 - Tdap) 1982 Mammogram/Breast Imaging 2004 Pneumococcal 50+ years (1 of 1 - PCV) 2014 Zoster (Shingrix) (1 of 2) 2014 COVID-19 Vaccine ( - 2023-2 5 season) 2023 Influenza (#1) 2024 RSV (1 - 1-dose 75+ series) 08/10/2039 HPV Vaccine Aged Out No longer eligi ble based on patient's age to complete this topic Hep A Aged Out No longer eligi ble based on patient's age to complete this topic Hep B Aged Out No longer eligi ble based on patient's age to complete this topic Hib Aged Out No longer eligi ble based on patient's age to complete this topic Meningococcal ACWY Aged Out No longer eligible based on patient's age to complete this topic Zoster (Zostavax) Discontinued
--- OUTSIDE RECORDS SUMMARY | 2024-11-09 08:40 | XMS_ITS | Clinical Summary ---
Author Organization [facility] Address [address] [place] [address] Care Team Providers Care Database Analyst Name Role Phone Unknown, Primary Care Provider [...] Last Done Comments Hepatitis C Screening 1965 COVID-19 Vaccine (#1) 02/08/1965 Depression Screening 1976 Preventative Health Evaluation 1982 Cervical Cancer Screening (Pap Smear) 1985 Colon Cancer Screening (Colonoscopy) 2009 Breast Cancer Screening (Mammogram) 2014 Shingrix-Zoster Vaccine (1 of 2) 2014 DTap / Tdap / Td (2 - Td or Tdap) 04/28/2020 04/28/2010 Influenza Vaccine (#1) 2024 , 02/19/2020, 03/01/2019, Additional history exists RSV Adult > 60+ Yrs or (1 - 1-dose 75+ series) 08/10/2039 Hepatitis B Vaccines Aged Out No long er eligible based on patient's age to complete this topic Pneumococcal Vaccine Aged Out No long er eligible based on patient's age to complete this topic RSV Ped < 20 months Aged Out No longe r eligible based on patient's age to complete this topic Care Teams Database Analyst Relationship Specialty Start Date End Date Unknown, PCP - General 01/07/23
--- OUTSIDE RECORDS SUMMARY | 2024-11-09 08:40 | XMS_ITS | Data Portability ---
Author Organization [place] - Karthik Ludwig [facility], [facility] Address [address] [place] [address] Care Team Providers Care Brush Filler Hand Name Role Phone NITHIN DUBON Primary Care Provider [phone] MARQUIS HUGO Access Consultant Assessment Encounter Date Assessment Date Assessment LastModified by Organization Details LastModified Time 04/09/2024 04/09/2024 A: quick to fatigue with hip strengthening. +moderate TTP R troch. good core engagement with ther ex. P: Cont POC. [email or web address] Not available 04/09/2024 10:18:16 04/12/2024 04/12/2024 A: Tenderness at piriformis and ITB today. Pt able to complete exs with min/mod discomfort. P: Cont POC. [email or web address] Not available 04/12/2024 12:20:14 04/26/2024 04/26/2024 Chief complaint: Left knee pain. History of present illness: The patient is a 58-year-old female presenting with a chief complaint of left knee pain. She has had pain for 1 year. The patient currently has 4 out of 10 pain. Currently the patient uses no assistive devices when walking. The patient has tried rest, NSAIDS, physical therapy, corticosteroid injection, viscosupplementati on, exercise, and activity modification but continues to have pain. Past medical history: Past medical history reviewed from the patient's intake sheet. Pertinent positives: none Past surgical history: Past surgical history reviewed from the patient's intake sheet. Pertinent positives: none Allergies: Allergies reviewed from the patient's intake sheet. Pertinent positives: penicillin, amoxicillin, and scopolamine Medications: Medications reviewed from the patient's intake sheet. Pertinent positives: none Social history: Social history reviewed from the patient's intake sheet. Pertinent positives: none Physical Examination: The patient is in no acute distress. She is alert and oriented x3. She has nonlabored breathing. Her hearing is intact to spoken word. Her extra-ocular motion is intact. Her BMI is 26.9. Left lower extremity - Alignment: varus Effusion: moderate Knee range of motion: 0-120 Varus/valgus stress testing: moderate laxity Crepitus: slight Skin is intact without erythema, induration, or ecchymosis. The patient has full painless range of motion at the ipsilateral hip. Sensation is intact to light touch over the dorsum of the foot, in the first webspace, and over the plantar aspect of the foot. The patient has 5/5 strength with plantarflexion of the ankle, dorsiflexion of the ankle, plantarflexion of the great toe, and dorsiflexion of the great toe. The foot is warm and well-perfused with brisk capillary refill. There is a 2+ dorsalis pedis pulse. Radiographs: 4 views of the left knee including bilateral knee AP, bilateral knee Muñoz, left knee lateral, and bilateral knee merchant views were obtained and evaluated in the office previously and are available for review. X-rays demonstrate that the patient has end-stage osteoarthritis of the left knee with joint space narrowing, subchondral sclerosis, and osteophyte formation. There is no evidence of fracture. Assessment and plan: The patient is a 58-year-old female presenting with a chief complaint of left knee pain. She demonstrates end-stage osteoarthritis of the left knee on her radiographs. At this point, the patient has failed non-operative treatment of her left knee osteoarthritis. The patient has tried NSAIDs, rest, exercise, Visco supplementation injection, physical therapy, corticosteroid injection, and activity modification but continues to have worsening pain for greater than 3 months. A thorough discussion was had with the patient regarding both nonsurgical and surgical interventions for treatment of left knee osteoarthritis. Since the patient has experienced worsening pain despite conservative treatment, the patient wished to proceed with surgery. The nature of knee replacement surgery, the potential risks, benefits, complications, the magnitude of the surgery, the intensity of postoperative recovery, and the elective nature of a left total knee arthroplasty were discussed at length. Risks and complications discussed included postoperative stiffness, infection requiring further surgery or potential removal of implants, persistent infection requiring possible amputation, wound healing complications, instability, dislocation, need for additional surgery or revision arthroplasty, aseptic loosening, extensor mechanism disruption, implant failure, injury to nerve, foot drop, numbness, numbness over the lateral knee, injury to blood vessel, bleeding, hematoma, need for transfusion, fracture, heart attack, stroke, deep vein thrombosis, pulmonary embolism, and even intraoperative or postoperative . Despite these risks, the patient still wished to proceed with surgery. The patient was instructed that I am happy to meet again at any time in order to review any additional questions or concerns the patient might have. Since the patient wishes to proceed, we will schedule the patient for a left total knee arthroplasty. The patient will require clearance from a medical doctor prior to surgery. The next planned follow-up is at the preoperative history and physical appointment. [email or web address] Not available 05/03/2024 06:48:20 Plan of Treatment Reminders Order Date Submit Date Provider Last Modified By Organization Details Last Modified Time Details Appointments RECHECK 2024 10:30A Esperanza Caputo MD Not available Not available Not available Lab None recorded . Referral None recorded . Procedures None recorded . Surgeries None recorded . Imaging None recorded . Medication Orders None recorded . Patient TargetsNo targets recorded. Patient InstructionsNo instructions recorded. Reason for Referral None Reported. Problems Name Problem SNOMED Code Status Onset Date Resolution Date Notes Provider Name and Address Organization Details Recorded Time No complaint s 078603249 Active Status: 'I'; Not Available [facility] 4 09:19:57 Osteoarth ritis of left knee joint 943517616770 109 Active 2024 Abraham Steward PA-C [address], [facility] [place], [address] , [facility] 5 08:29:39 Low back pain 693215360 Active 2014 Status: 'A'; Not Available [facility] 4 11:58:51 Bilateral carpal tunnel syndrome 729503640629 24627 Active 2018 Problem Code: G56.03; Problem Code Type: ICD-10; Status: 'A'; Not Available [facility] 4 11:58:51 Problem Notes None recorded. Procedures Surgical History Date Name Laterality Status Provider Name and Address Organization Details Recorded Time 4 99540 Therapeutic Exercise (1:1) completed Nataliya Garrison, SCHOOL OFFICE ASSISTANT [address], [place], [address], [facility] 10/27/2023 10:12:04 4 64632: Manual therapy completed Grace Lorenzo, PT [address], [place], [address], [facility] 10/27/2023 11:30:33 4 23935 Therapeutic Exercise (1:1) completed Grace Lorenzo, PT [address], [place], [address], [facility] 10/23/2023 18:35:56 4 87543 Therapeutic Exercise (1:1) completed Grace Lorenzo, PT [address], [place], [address], [facility] 10/20/2023 15:29:32 4 74599: Low complexity PT Eval completed Grace Lorenzo, PT [address], [place], [address], [facility] 10/20/2023 15:29:36 4 Sports Knee 4&1 completed Abraham Steward PA-C [address], [place], [address], [facility] 09/23/2023 12:56:30 4 43325 Therapeutic Exercise (1:1) completed Grace Lorenzo, PT [address], [place], [address], [facility] 08/27/2023 11:20:59 4 56872: Hot or Cold Pack completed Grace Lorenzo, PT [address], [place], [address], [facility] 08/27/2023 11:20:59 4 97565 Therapeutic Exercise (1:1) completed Grace Polblaise, PT [address], [place], [address], [facility] 08/25/2023 12:44:51 4 86348: Hot or Cold Pack completed Grace Polblaise, PT [address], [place], [address], [facility] 08/25/2023 12:44:51 4 93328 Therapeutic Exercise (1:1) completed Grace Polblaise, PT [address], [place], [address], [facility] 08/18/2023 10:04:46 4 82338: Hot or Cold Pack completed Grace Polblaise, PT [address], [place], [address], [facility] 08/18/2023 10:04:46 4 98402 Therapeutic Exercise (1:1) completed Grace Polblaise, PT [address], [place], [address], [facility] 08/15/2023 10:57:03 4 16667: Hot or Cold Pack completed rGace Polblaise, PT [address], [place], [address], [facility] 08/15/2023 10:57:03 4 31594 Therapeutic Exercise (1:1) completed Grace Polblaise, PT [address], [place], [address], [facility] 08/12/2023 17:33:47 4 07760: Hot or Cold Pack completed Grace Polblaise, PT [address], [place], [address], [facility] 08/12/2023 17:33:47 4 28937 Therapeutic Exercise (1:1) completed Grace Polblaise, PT [address], [place], [address], [facility] 08/07/2023 10:58:24 4 20384: Hot or Cold Pack completed Grace Polcolliny, PT [address], [place], [address], [facility] 08/07/2023 10:58:24 4 22524 Therapeutic Exercise (1:1) completed Grace Polcolliny, PT [address], [place], [address], [facility] 08/05/2023 11:06:21 4 90152: Hot or Cold Pack completed Grace Lorenzo, PT [address], [place], [address], [facility] 08/05/2023 11:06:20 4 82145 Therapeutic Exercise (1:1) completed Grace Polblaise, PT [address], [place], [address], [facility] 07/31/2023 10:57:44 4 50460: Hot or Cold Pack completed Grace Polblaise, PT [address], [place], [address], [facility] 07/31/2023 10:57:43 4 25274 Therapeutic Exercise (1:1) completed Grace Polblaise, PT [address], [place], [address], [facility] 07/29/2023 11:05:41 4 32770: Hot or Cold Pack completed Grace Polblaise, PT [address], [place], [address], [facility] 07/29/2023 11:45:37 4 29251 Therapeutic Exercise (1:1) completed Grace Polcolliny, PT [address], [place], [address], [facility] 07/24/2023 12:02:01 4 88479: Low complexity PT Eval completed Grace Lorenzo, PT [address], [place], [address], [facility] 07/24/2023 12:02:09 4 Euflexxa Knee Injection completed KYLAH Gale-C [address], [place], [address], [facility] 07/18/2023 14:01:13 4 Euflexxa Knee Injection completed KYLAH Gale-C [address], [place], [address], [facility] 07/11/2023 13:16:44 Imaging Results None recorded. Procedure Notes None recorded. Medical Equipment None Reported. Allergies Allergen ID Allergen Name Allergen Category Reaction Reaction Severity Criticality Documentation Date Start Date Code Code System Note Provider Name and Address Organization Details Recorded Time 262013 Product containin g penicilli n (product) medicatio n Not available Not available Not available 06/30/20232004 90365 8001 SNOMED Aller gyRea ction : 'Skin React ion'; Not Available [facility] 4 15:38:46 873456 amoxicill in trihydrat e medicatio n Not available Not available Not available 06/30/20232004 30243 8 RxNorm Aller gyRea ction : 'Skin React ion'; Not Available [facility] 4 15:38:46 300877 Ceclor medicatio n Not available Not available Not available 06/30/20232021 44883 5 RxNorm Not Available [facility] 4 15:38:46 304120 scopolami ne medicatio n Not available Not available Not available 07/11/2023 9601 RxNorm LORRI mena [facility] 4 13:03:51 Medications Name Sig Start Date Stop Date Status Note LastModified by Organization Details LastModified Time celecoxib 200 mg capsule TAKE 1 CAPSULE BY MOUTH TWICE A DAY WITH FOOD active Not Available Not Available No t Available gabapentin 600 mg tablet TAKE 1 TABLET BY MOUTH EVERY DAY IN THE MORNING active Not Available Not Available No t Available tizanidine 4 mg tablet TAKE ONE TABLET BY MOUTH 3 TIMES A DAY NEEDED SPASMS 07/10 completed Not Available Not Available Not Available metoprolol succinate ER 50 mg tablet,exte nded release 24 hr TAKE 1 TABLET BY MOUTH EVERY MORNING active Not Available Not Available No t Available hydrocodone 5 mg-acetamin ophen 325 mg tablet TAKE 1 TABLET BY MOUTH FOUR TIMES A DAY FOR 7 DAYS active Not Available Not Available No t Available ondansetron HCl 4 mg tablet TAKE 1 TABLET BY MOUTH TWO TIMES A DAY FOR 5 DAYS 11/18 completed Not Available Not Available Not Available omeprazole 40 mg capsule,del ayed release TAKE 1 CAPSULE BY MOUTH EVERY DAY active Not Available Not Available No t Available tramadol 50 mg tablet TAKE 1 TABLET BY MOUTH THREE TIMES A DAY NEEDED FOR PAIN active Not Available Not Available No t Available triamcinolo ne acetonide 0.1 % topical cream APPLY TO UNDER BREAST TWICE A DAY FOR 2 WEEKS NEEDED FOR RASH active Not Available Not Available No t Available levothyroxi ne 25 mcg tablet TAKE 1 TABLET BY MOUTH EVERY OTHER DAY active Not Available Not Available No t Available gabapentin 800 mg tablet TAKE 1 TABLET BY MOUTH EVERYDAY AT BEDTIME active Not Available Not Available No t Available erythromyci n 5 mg/gram (0.5 %) eye ointment APPLY A THIN RIBBON TO BOTH UPPER LIDS 3 TIMES A DAY AFTER SURGERY active Not Available Not Available No t Available pseudoephed rine-guaife nesin ER 80-700 mg tablet,exte nded release 1 Q 4-[address] WHILE TAKING THIS MEDICATIO N 08/05 completed Statu s: 'Disc ontin ued'; Not Available Not Available Not Available prednisone 50 mg tablet TAKE 1 TABLET BY MOUTH EVERY DAY 07/10 completed Not Available Not Available Not Available omeprazole 20 mg capsule,del ayed release TAKE 1 CAPSULE BY MOUTH TWICE DAILY 30 MINUTES BEFORE A MEAL active Not Available Not Available No t Available zolpidem 5 mg tablet TAKE 1 TABLET BY MOUTH EVERY DAY AT BEDTIME NEEDED FOR SLEEP active Not Available Not Available No t Available diazepam 10 mg tablet BRING THE TABLETS TO THE OFFICE AND PHYSICIAN WILL ADMINISTE R PRIOR TO PROCEDURE active Not Available Not Available No t Available methylpredn isolone 4 mg tablets in a dose pack FOLLOW PACKAGE DIRECTION S 11/18 completed Not Available Not Available Not Available paroxetine 40 mg tablet TAKE 1 TABLET BY MOUTH EVERY DAY active Not Available Not Available No t Available ketoconazol e 2 % topical cream APPLY UNDER BREASTS TWICE DAILY FOR 2 WEEKS active Not Available Not Available No t Available ondansetron 4 mg disintegrat ing tablet DISSOLVE 1 TABLET ON THE TONGUE EVERY 6 HOURS NEEDED FOR NAUSEA OR VOMITING active Not Available Not Available No t Available nabumetone 500 mg tablet TAKE 1 TABLET BY MOUTH TWICE A DAY WITH FOOD active Not Available Not Available No t Available oxycodone 5 mg tablet TAKE 1 TABLET BY MOUTH EVERY 6 HOURS NEEDED FOR MODERATE PAIN active Not Available Not Available No t Available neomycin 3.5 mg/g-polymy amberly B 10,000 unit/g-dexa meth 0.1 % eye oint APPLY TO BOTH UPPER LIDS TWICE A DAY active Not Available Not Available No t Available ezetimibe 10 mg tablet TAKE 1 TABLET BY MOUTH EVERY DAY active Not Available Not Available No t Available tizanidine 4 mg capsule TAKE 1 TAB THREE TIMES A DAY NEEDED FOR SPASMS active Not Available Not Available No t Available prednisone predniSON E 2.5MG Tablet 02/13 completed Statu s: 'Disc ontin ued'; Not Available Not Available Not Available oxycodone HCl-oxycodo ne-ASA as directed 1 TABLET Q 4 HOURS PRN PAIN DO NOT DIRVE WHILE ON THIS MED 08/05 completed Statu s: 'Disc ontin ued'; Not Available Not Available Not Available Wegovy 0.25 mg/0.5 mL subcutaneou s pen injector 11/18 completed Not Available Not Available Not Available Zepbound 10 mg/0.5 mL subcutaneou s pen injector INJECT 10 MG UNDER THE SKIN ONE DAY A WEEK ROTATE INJECTION SITES active Not Available Not Available No t Available Zepbound 5 mg/0.5 mL subcutaneou s pen injector INJECT 5 MG SUBCUTANE OUSLY EVERY WEEK CALL AFTER 3RD WEEK FOR DOSE INCREASE 11/18 completed Not Available Not Available Not Available Zepbound 2.5 mg/0.5 mL subcutaneou s pen injector INJECT 2.5 MG SUBCUTANE OUS EVERY 7 DAYS CALL AFTER 3RD INJECTION FOR DOSE INCREASE 11/18 completed Not Available Not Available Not Available Zepbound 15 mg/0.5 mL subcutaneou s pen injector INJECT 15 MG SUBCUTANE OUSLY ONCE A WEEK ROTATE INJECTION SITES active Not Available Not Available No t Available Zepbound 12.5 mg/0.5 mL subcutaneou s pen injector active Not Available Not Available Not Available Zepbound 7.5 mg/0.5 mL subcutaneou s pen injector INJECT 7.5 MG SUBCUTANE OUSLY EVERY WEEK ROTATE INJECTIOB SITES CALL AFTER 3RD INJECTION FOR DOSE INCREASE 11/18 completed Not Available Not Available Not Available Vitals Date Recorded Body height Body mass index (BMI) Body weight Provider Name and Address Organization Details Last Updated DateTime 06/15/2024 172.72 cm 26.9 kg/m2 76891.85 g [facility] 06/15/2024 08:29:56 Date Recorded Body height Body mass index (BMI) Body weight Provider Name and Address Organization Details Last Updated DateTime 08/10/2024 172.72 cm 26.9 kg/m2 65836.85 g Kate Armendariz [facility] 08/10/2024 08:43:05 Date Recorded Body height Body mass index (BMI) Body weight Provider Name and Address Organization Details Last Updated DateTime 04/26/2024 172.72 cm 26.9 kg/m2 95181.85 g JEROME MABRY [facility] 04/26/2024 11:58:57 Social History None recorded. Functional Status None recorded. Mental Status None recorded. Family History Nothing Reported. Medical History Condition Response Allergies/Hayfever N Coronary Artery Disease N Anxiety/Depression Y Emphysema N Thyroid Problems N COPD N Pacemaker N Anemia N Kidney/Bladder Problems N Vascular Disease N Heart Attack (CA) N Gastrointestinal Disease N Diabetes N Autoimmune disease N Bleeding Disorder N Orthotics N Arthritis Y Seizures/Epilepsy N Blood Clot N AIDS/HIV N Congestive Heart Failure (CHF) N Acid Reflux (GERD) Y Cancer N Stroke N Asthma N Peripheral Vascular Disease N Sleep Apnea Y Hepatitis N Heart Disease N Rheumatoid Arthritis N Arrhythmia N Pulmonary Embolism N Fibromyalgia N Hypertension N Osteoporosis N Gynecological HistoryNo gynecological history recorded. Obstetrics History GPAL:G 0 P 0 0 0 0 Past Encounters Encounter ID Performer Location Encounter Start Date Encounter Closed Date Diagnosis/Indication Diagnosis SNOMED-CT Code Diagnosis ICD10 Code Diagnosis Note [id number] [facility] [address] [place] [address] 07/11/2023 12:48:27 07/11/2023 13:15:06 Osteoarthritis of knee 949790298 M17.9 [id number] [facility] [address] [place] [address] 07/18/2023 13:50:52 08/06/2023 12:32:00 Osteoarthritis of left knee joint 1224719892 03378 M17.12 [id number] Grace Lorenzo, PT [facility] [address] [place] [address] 07/24/2023 10:47:27 07/24/2023 12:22:38 Osteoarthritis of left knee joint 2661394366 81179 M17.12 [id number] Grace Lorenzo, PT [facility] [address] [place] [address] 07/29/2023 10:46:16 07/29/2023 12:51:00 Osteoarthritis of left knee joint 2140048173 67152 M17.12 [id number] Grace Lorenzo PT [facility] [address] [place] [address] 07/31/2023 10:48:21 07/31/2023 12:31:11 Osteoarthritis of left knee joint 9653800020 56427 M17.12 [id number] Grace Lorenzo PT [facility] [address] [place] [address] 08/05/2023 10:49:56 08/05/2023 14:17:21 Osteoarthritis of left knee joint 1959164231 98371 M17.12 [id number] Grace Lorenzo PT [facility] [address] [place] [address] 08/07/2023 10:55:27 08/07/2023 12:10:09 Osteoarthritis of left knee joint 1390639848 44037 M17.12 [id number] Grace Maura, PT [facility] [address] [place] [address] 08/12/2023 17:22:39 08/13/2023 07:30:30 Osteoarthritis of left knee joint 7443252783 08776 M17.12 [id number] Grace Maura, PT [facility] [address] [place] [address] 08/15/2023 10:50:49 08/15/2023 12:16:34 Osteoarthritis of left knee joint 8460516324 24859 M17.12 [id number] Grace Leesglenn, PT [facility] [address] [place] [address] 08/18/2023 10:01:51 08/18/2023 11:29:27 Osteoarthritis of left knee joint 5202012208 38098 M17.12 [id number] Milton Quintanilla MD [facility] [address] [place] [address] 08/22/2023 13:04:11 09/11/2023 07:56:51 Lumbar radiculopathy 818369216 M54.16 [id number] Grace Lorenzo, PT [facility] [address] [place] [address] 08/25/2023 12:29:46 08/25/2023 13:22:17 Osteoarthritis of left knee joint 3120925459 45729 M17.12 [id number] Grace Lorenzo, PT [facility] [address] [place] [address] 08/27/2023 11:01:42 08/27/2023 13:16:48 Osteoarthritis of left knee joint 4144169902 37175 M17.12 [id number] [facility] [address] [place] [address] 09/03/2023 08:37:27 09/25/2023 19:31:50 Low back pain 070665464 M54.50 [id number] Milton Quintanilla MD [facility] [address] [place] [address] 09/11/2023 13:37:31 10/02/2023 14:23:21 Lumbar radiculopathy 556267591 M54.16 [id number] [facility] [address] [place] [address] 09/23/2023 10:48:34 09/23/2023 13:24:07 Pes anserinus bursitis of left knee 3923408993 890033 M70.52 [id number] Milton Quintanilla MD [facility] [address] [place] [address] 10/08/2023 13:04:26 11/12/2023 11:30:43 Low back pain 681542917 M54.50 [id number] Grace Lorenzo, PT [facility] [address] [place] [address] 10/20/2023 14:00:35 10/20/2023 15:29:37 Low back pain 039125357 M54.50 [id number] Grace Lorenzo, PT [facility] [address] [place] [address] 10/23/2023 16:42:00 10/23/2023 17:39:49 Low back pain 045455796 M54.50 [id number] Grace Lorenzo, PT [facility] [address] [place] [address] 10/27/2023 10:22:38 10/27/2023 11:31:10 Low back pain 731751859 M54.50 [id number] Grace Lorenzo, PT [facility] [address] [place] [address] 11/04/2023 11:50:02 11/04/2023 13:00:45 Low back pain 159066720 M54.50 [id number] Leandra Scruggs, SCHOOL OFFICE ASSISTANT [facility] [address] [place] [address] 11/07/2023 08:33:11 11/07/2023 10:05:26 Low back pain 271321844 M54.50 [id number] Grace Lorenzo, PT [facility] [address] [place] [address] 11/11/2023 11:26:56 11/11/2023 12:50:37 Low back pain 391763604 M54.50 [id number] Grace Lorenzo, PT [facility] [address] [place] [address] 11/14/2023 09:28:39 11/14/2023 13:00:29 Low back pain 904532927 M54.50 [id number] Grace Lorenzo, PT [facility] [place] [address] 11/18/2023 09:41:16 11/18/2023 10:48:41 Low back pain [id number] M54.50 [id number] [facility] [address] [place] [address] 11/19/2023 10:48:08 12/12/2023 09:38:27 Osteoarthritis of left knee joint [id number] 01157 M17.12 [id number] Grace Lorenzo, PT [facility] [address] [place] [address] 11/21/2023 09:21:07 11/21/2023 10:43:04 Low back pain [id number] M54.50 [id number] Grace Lorenzo, PT [facility] [address] [place] [address] 11/25/2023 09:30:05 11/25/2023 10:19:36 Low back pain [id number] M54.50 [id number] Leandra Scruggs, SCHOOL OFFICE ASSISTANT [facility] [place] [address] 12/12/2023 14:50:44 12/12/2023 15:57:17 Low back pain [id number] M54.50 [id number] Grace Lorenzo, PT [facility] [address] [place] [address] 12/17/2023 10:18:32 12/17/2023 11:41:17 Low back pain [id number] M54.50 [id number] Milton Quintanilla MD [facility] [address] [place] [address] 12/19/2023 09:25:14 01/13/2024 10:42:21 Low back pain [id number] M54.50 [id number] Grace Maura, PT [facility] [address] [place], [place] [address] 12/19/2023 13:10:52 12/19/2023 15:21:19 Low back pain [id number] M54.50 [id number] Leandra Scruggs, SCHOOL OFFICE ASSISTANT [facility] [address] [place], [place] [address] 12/22/2023 09:29:20 12/22/2023 10:57:33 Low back pain [id number] M54.50 [id number] Grace Lorenzo, PT [facility] [address] [place] [address] 12/26/2023 09:26:39 12/26/2023 10:51:19 Low back pain [id number] M54.50 [id number] Grace Maura, PT [facility] [address] [place] [address] 12/30/2023 13:26:20 12/30/2023 14:36:12 Low back pain [id number] M54.50 [id number] Grace Lorenzo, PT [facility] [address] [place], [place] [address] 01/02/2024 09:26:02 01/02/2024 10:48:49 Low back pain [id number] M54.50 [id number] Grace Maura, PT [facility] [address] [place], [place] [address] 01/09/2024 12:54:03 01/09/2024 14:17:02 Low back pain [id number] M54.50 [id number] Leandra Scruggs, SCHOOL OFFICE ASSISTANT [facility] [address] [place] [address] 01/13/2024 11:59:50 01/13/2024 13:22:46 Low back pain [id number] M54.50 [id number] Grace Maura, PT [facility] [address] [place] [address] 01/16/2024 10:51:50 01/16/2024 13:04:34 Low back pain [id number] M54.50 [id number] Grace Lorenzo, PT [facility] [address] [place] [address] 01/19/2024 10:21:23 01/19/2024 11:22:49 Low back pain [id number] M54.50 [id number] Grace Lorenzo, PT [facility] [address] [place] [address] 01/22/2024 13:21:52 01/22/2024 14:44:09 Low back pain [id number] M54.50 [id number] Grace Lorenzo, PT [facility] [address] [place] [address] 01/26/2024 08:54:25 01/26/2024 09:52:50 Low back pain [id number] M54.50 [id number] Abraham Steward PA-C [address] [place] [address] 01/28/2024 09:25:01 01/28/2024 12:49:12 Pain of left knee joint [id number] 37246 M25.562 Osteoarthr itis of left knee joint [id number] 55444 M17.12 [id number] Milton Quintanilla MD [facility] [address] [place] [address] 03/19/2024 09:30:25 04/17/2024 19:28:18 Lumbar radiculopathy [id number] M54.16 [id number] Abraham Steward PA-C [facility] [address] [place] [address] 03/26/2024 08:01:56 04/27/2024 15:13:08 Osteoarthritis of left knee joint [id number] 99508 M17.12 [id number] Grace Lorenzo, PT [facility] [address] [place] [address] 03/30/2024 15:20:56 03/30/2024 16:45:59 Lumbar radiculopathy [id number] M54.16 [id number] Leandra Scruggs, SCHOOL OFFICE ASSISTANT [facility] [address] [place] [address] 04/06/2024 12:25:46 04/06/2024 13:16:13 Lumbar radiculopathy [id number] M54.16 [id number] Grace Maura, PT [facility] [address] [place] [address] 04/09/2024 09:25:12 04/09/2024 10:10:42 Lumbar radiculopathy [id number] M54.16 [id number] Leandra Sheba, SCHOOL OFFICE ASSISTANT [facility] [address] [place] [address] 04/12/2024 08:57:14 04/12/2024 10:35:42 Lumbar radiculopathy [id number] M54.16 [id number] MD [facility] [address] [place] [address] 04/26/2024 11:46:20 05/11/2024 08:45:47 Osteoarthritis of left knee joint [id number] 48492 M17.12 [id number] [facility] [address] [place] [address] 06/15/2024 08:23:48 07/09/2024 10:25:45 Osteoarthritis of left knee joint [id number] 74811 M17.12 Pes anseri nus bursitis of left knee [id number] M70.52 [id number] [facility] [address] [place] [address] 08/10/2024 08:25:23 08/30/2024 08:57:59 Osteoarthritis of left knee joint [id number] 58474 M17.12 Health Concerns Section Related Observation LastModified by Organization Detai ls LastModified Time None Recorded Concern Status LastModified by Organization Details LastModified Time None Recorded Advance Directives Directive None Recorded Payers Insurance Date Sequence Insurance Name Policy Number Policy Griffin Covered Member ID Griffin Member ID Guarantor Name 11/09/2024 1 [facility] C-Note [facility] (MEDICAID HMO) [id number] Lynn Izaguirre [id number] Lynn Izaguirre 08/27/2024 2 [facility] Lynn Izaguirre [id number] Lynn Izaguirre 12/20/2023 2 [facility] ([facility] Lynn Izaguirre [id number] Lynn Mata Zina 01/26/2024 [facility] GUND[facility] Lynn Mata Jessicanely 11/24/2023 1 [facility]) [id number] Lynn Izaguirre [id number] Lynn Mata Deanyudelka Notes Date Note Type Note Provider Name and Address Organization Details Recorded Time 04/09/2024 text/html my knee is not g reat today. Grace Lorenzo, PT [address], [place], [address], [facility] 04/09/2024 10:18:29 04/12/2024 text/html Pt states she is overall sore today- hosted a dinner constitution party yesterday and was on her feet all day. States fibromyalgia is flaring up as well. Leandra Scruggs, SCHOOL OFFICE ASSISTANT [address], [place], [address], [facility] 04/12/2024 12:21:06 06/15/2024 text/html I am seeing the patient today under the supervision of Dr. Caputo who was available but who did not see the patient. HPI: Lynn returns for follow-up evaluation regarding her left knee. Has a history of grade 4 end-stage osteoarthritis. Recently seen by Dr. Ta who has offered her knee arthroplasty. She is looking for some management of this arthritis and relief of symptoms prior to her travel in July. She will consider doing knee arthroplasty this coming summer. Past family, medical, social history and review of systems has been reviewed, updated and signed by me and is located in the patient's chart. Examination: Left knee with slight varus alignment. Tenderness to palpation medially about the joint line but most focally today about the pes anserine bursa. Intact knee extension and flexion 130 degrees. Intact stability without ligamentous laxity. Pain reproduced with Cher's maneuver and there is significant retropatellar crepitus with motions of the patella. X-rays from previous office visit reviewed today at [facility]. Medial compartment and patellofemoral compartment osteoarthritis grade 3-4. Impression: Left knee pain, advanced osteoarthritis left knee, pes anserine bursitis left knee. Plan: A lengthy discussion today regarding arthritis treatment options. She has been doing many different management techniques including topical treatments with Voltaren gel, knee bracing which has not been helpful. Medication and is on nabumetone, gabapentin and tramadol.No changes to her medication regimen at this time. Offered her corticosteroid injection. We discussed the use of extra-articular and intra-articular injections. As she is planning an extended vacation in July we will hold off on intra-articular injection today and opted for extra-articular pes anserine bursal injection. Patient agreed to this. She is rescheduled an appointment in approximately 2 months prior to her travel for an intra-articular injection. Comfortable with my recommendation and plan. She opted for cortisone injection which was performed. See procedure note. Recheck as arranged Abraham Steward PA-C [address], [place], [address], [facility] 06/15/2024 08:59:00 08/10/2024 text/html I am seeing the patient today under the supervision of Dr. Caputo who was available but who did not see the patient. HPI: Don returns for follow-up evaluation of her left knee. History of left knee arthritis and pes anserine bursitis. At last office visit 06/15/2024 we did an extra-articular injection to the pes bursa which was very beneficial. She is here today for intra-articular injection and is planning upcoming travel where she will be doing a lot of walking. Past family, medical, social history and review of systems has been reviewed, updated and signed by me and is located in the patient's chart. Examination: Left knee without erythema redness or warmth. No joint effusion. There is moderate discomfort medial joint line and to a lesser degree over the pes bursa. intact normal range of motion and strength. No instability found. Impression: Left knee osteoarthritis Plan: Treatment options once again discussed with Lynn. She is interested in a cortisone injection which I have offered her. She agreed to move forward with intra-articular corticosteroid knee injection for left knee. This was performed without difficulty. Patient tolerated procedure well. Recheck as needed for ongoing care of her arthritis and tendinitis. Abraham Steward PA-C [address], [place], [address], [facility] 08/10/2024 09:04:21 OBGyn Episode No OBEpisode recorded.
--- OUTSIDE RECORDS SUMMARY | 2024-11-09 08:40 | XMS_ITS | Clinical Summary ---
Author Organization [facility] Address [address] [place] [address] Care Team Providers Care Travel Ticketing Reviewer Name Role Phone Bonnie Nicole Primary Care Provider [phone] Allergies Active Allergy Reactions Criticality Noted Date [...] 86 07/21/2023 1:54 PM EDT Temperature 36.1 C (96.9 F) 07/21/2023 1:54 PM EDT Respiratory Rate - - Oxygen Saturation 98% [...] Smear 1964 Pap Smear 1964 Sigmoidoscopy 1964 Pneumococcal Vaccine: 50+ Years (1 of 1 - PCV) 2014 Zoster Vaccines (1 of 2) 2014 DTaP,Tdap,and Td Vaccines (2 - Td or Tdap) 07/31/2021 08/01/2011 COVID-19 Vaccine (1 - 2023-2 5 season) 2023 Alcohol/Substance Use Screening 04/28/2024 Influenza Vaccine (#1) 2024 Cologuard 12/31/2025 12/31/2022, 12/31/2022 Colon Cancer Screening 12/31/2025 RSV Vaccine (60+ years old a nd patients) (1 - 1-dose 75+ series) 08/10/2039 Hepatitis B Vaccines Aged Out No long er eligible based on patient's age to complete this topic Insurance [facility] Care Teams Travel Ticketing Reviewer Relationship Specialty Start Date End Date Bonnie Nicole [address] [place] [address] PCP - General 04/15/23
== END 2024-11-09 09:09 | disposition home or self-care (01) ==
LOC: HO.RHES 08:34
PROVIDERS: PCP Physician Assistant; Visit Provider Internal Medicine Rheumatology
DX: M25.512 Pain in left shoulder (principal); G89.29 Other chronic pain; M75.52 Bursitis of left shoulder; M75.82 Other shoulder lesions, left shoulder; Z79.1 Long term (current) use of non-steroidal anti-inflammatories (NSAID); M35.3 Polymyalgia rheumatica; M79.7 Fibromyalgia
CPT/HCPCS: 99214; G2211

== ENCOUNTER → 2024-11-09 11:06 | Outpatient (BNV) | payer OTHER, SELFPAY | PROVIDERS: PCP Internal Medicine; Visit Provider Radiology Diagnostic Radiology | DX: M25.512 Pain in left shoulder (principal) | CPT/HCPCS: 73030 ==

== ENCOUNTER 2024-12-09 09:47 | Outpatient (REF) | payer OTHER, SELFPAY ==
--- OUTSIDE RECORDS SUMMARY | 2023-07-01 05:30 | XMS_ITS ---
Author Organization [facility] Address [address] [place] [address] Care Team Providers Care Manager Lsw Name Role Phone Bonnie Nicole Primary Care Provider Unavailabl Aisha Schaeffer [phone] Encounters Encounter Location Date Provider Diagnosis [address] [place] [address] 07/01/2023 Aisha Hill Plan Of Treatment No Information Progress Notes * Shine IGNACIOOB:1965 (59 yo F)Acc No.[id number]:07/01/2023 Progress Notes Patient: Lynn DAWSON Provider: Jadiel Hill DPM :1965 A ge:57 Y S ex:Female Date:07/01/2023 Phone: Address:[address] [place] [address] Pcp:Bonnie Nicole Subjective: * Chief Complaints: * [...] Date: 07/01/2023 Generated for Deedee king/Lashay/Sherlynitting on: 12/09/2024 10:29 AM EDT
--- NOTE | ~2024-12-09 | MR_ITS ---
CLINICAL HISTORY: M75.82 - Other shoulder lesions, left shoulder --- Additional Notes or Special Instructions: r o rotator cuff tear Exam: MRI of the left shoulder without intravenous contrast. Comparison: Radiographs November 09, 2024. Findings: No rotator cuff tears are identified. Mild tendinopathy of the distal supraspinatus and infraspinatus tendons with areas of increased intrasubstance signal intensity. No discrete full-thickness or partial-thickness tear is evident. No tendon retraction or muscle atrophy is seen. Teres minor and subscapularis tendons are intact. There are no tears of the glenoid labrum. Specifically, no tear of the superior labrum or the anteroinferior labrum is identified. The tendon of the long head of the biceps is appropriately positioned within the bicipital groove. There is a type 2 acromion. Moderate degenerative change of the AC joint with mild edema/fluid within the subacromial/subdeltoid space. Mild glenohumeral joint DJD. Trace shoulder joint effusion. Impression: 1. Mild supraspinatus and infraspinatus tendinopathy without rotator cuff tear. 2. Glenohumeral joint and AC joint DJD with subacromial/subdeltoid bursitis. This document has been electronically signed by: Brad Wolff MD on 12/10/2024 07:47:33
--- OUTSIDE RECORDS SUMMARY | 2024-12-09 10:29 | XMS_ITS | Clinical Summary ---
Author Organization [facility] Address [address] [id number] Care Team Providers Care Quick Mixer Operator Name Role Phone Unavailable Primary Care Provider [...] - 1-dose 75+ series) 08/10/2039 HPV Vaccine (No Doses Required) Completed Hep A Aged Out No longer eligi [...]
--- OUTSIDE RECORDS SUMMARY | 2024-12-09 10:29 | XMS_ITS | Clinical Summary ---
Author Organization [facility] Address [address] [place] [address] Care Team Providers Care Drywall Hanger Framer Name Role Phone Unknown, Primary Care Provider [...] age to complete this topic Care Teams Drywall Hanger Framer Relationship Specialty Start Date End Date Unknown, PCP - General 01/07/23
--- OUTSIDE RECORDS SUMMARY | 2024-12-09 10:29 | XMS_ITS | Clinical Summary ---
Author Organization [facility] Address [address] [place] [address] Care Team Providers Care Smash Hand Name Role Phone Bonnie Nicole Primary Care Provider [phone] Allergies Active Allergy Reactions Criticality Noted Date [...] Adults 18 yrs or above (or HM Modifier)([facility]) 1982 Hepatitis C Virus Infection in Adolescents and Adults: Screening (or Modifier) ([facility]) 1982 DAE Screening: Once using ST OP-BANG Questionnaire for Adults with Conditions or high BMI([facility]) 1982 SDOH Screening Reminder: Tiffanie liliya for all adults ([facility]) 1982 Tobacco Smoking Cessation: i n Adults excluding Women: Behavioral and Pharmacotherapy Interventions ([facility]) 1982 DTaP/Tdap/Td Vaccines ([facility]) (1 - Tdap) 08/10/1983 Cervical Cancer Screenin 1-65 yrs of age (or Modifier) 1985 Cervical Cancer Screening: P ap every 3 yrs pts age 21-65 1985 Cervical Cancer: Pap Screeni ng with Modifier timing ([facility]) 1985 Cervical Cancer: hrHPV alone or with cotesting Pap for Pts 30-65yrs screening every 5yrs ([facility]) 1985 Colorectal Cancer Screening 45 -75 Yrs (or HM Modifier ) 2009 Colorectal Cancer: FLEXIBLE SIGMOIDOSCOPY Screening every 5 yrs 2009 Colorectal Cancer: Fecal Imm unochemical Test (FIT) Annually [facility] 2009 Colorectal Cancer: High-sens itivity gFOBT Screening Annually [facility] 2009 Colorectal Cancer: Stool Col oguard Screening every 3 yrs 2009 Colorectal Cancer:CT Colonography Screening every 5 yr s 2009 Breast Cancer: Screening Tiffanie liliya age 50-74 yrs (or HM Modifier)([facility]) 2014 Pneumococcal Vaccination Scr eening: Patients 50+ yrs of age ([facility]) (1 of 1 - PCV) 2014 Zoster/Shingles Vaccine Seri es Screening: Adults aged 18+ yrs (or HM Modifiers)([facility]) (1 of 2) 2014 COVID-19 Vaccine Screening: Initial Series and Booster Status ([facility]) (2023-25 season) 2023 Flu Vaccination: Yearly for ages 18mos through 64 years (or Modifier)([facility] ) 11/26/2024 RSV Vaccines (1 - 1-dose 75+ series) 08/10/2039 Medical Devices Not on file Insurance [facility] Care Teams Smash Hand Relationship Specialty Start Date End Date Bonnie Nicole PA [address] [place] [address] PCP - Catalytic Converter Operator Helper 01/24/19
--- OUTSIDE RECORDS SUMMARY | 2024-12-09 10:29 | XMS_ITS | Clinical Summary ---
Author Organization [facility] Address [address] [place] [address] Care Team Providers Care Copy Center Specialist Name Role Phone Bonnie Nicole Primary Care Provider [phone] Allergies Active Allergy Reactions Criticality Noted Date [...] patient's age to complete this topic Insurance [facility] Care Teams Copy Center Specialist Relationship Specialty Start Date End Date Bonnie Nicole [address] [place] [address] PCP - General 04/15/23
== END 2024-12-09 09:48 | disposition home or self-care (01) ==
LOC: HO.MRI 09:47
PROVIDERS: Visit Provider Internal Medicine Rheumatology
DX: M75.82 Other shoulder lesions, left shoulder (principal); M75.52 Bursitis of left shoulder; M25.512 Pain in left shoulder
CPT/HCPCS: 73221

== ENCOUNTER → 2024-12-09 10:08 | Outpatient (BNV) | payer OTHER, SELFPAY | PROVIDERS: Visit Provider Radiology Diagnostic Radiology | DX: M75.52 Bursitis of left shoulder (principal); M19.012 Primary osteoarthritis, left shoulder | CPT/HCPCS: 73221 ==

== ENCOUNTER 2025-01-05 09:14 | Outpatient (AMB) | payer OTHER, SELFPAY ==
--- NOTE | 2025-01-05 09:16 | A.OFFVIS_ITS ---
Vital Signs 01/05/25 09:20 Height 5 ft 8 in Weight 171 lb 11.841 oz BMI 26.1 BP 120/80 Blood Pressure Location Rt brachial Position Sitting Pulse 82 Pulse Source Pulse Oximeter Pulse Oximetry (%) 98 Oxygen Delivery Method Room Air Intake Visit Reasons: cortisone injection Intake Note: Patient presents for follow up on osteoarthritis. and cortisone inj. Accompanied by: Self / Same As Patient Allergies cefaclor (From [facility]) Allergy (Mild, Verified 01/05/25 09:22) Rash cillins Allergy (Mild, Uncoded 05/06/24 09:49) Hives scopalamine Allergy (Mild, Uncoded 05/06/24 09:49) deliriam HPI HPI cortisone injection: Details: She started physical therapy a few weeks ago. Nabumetone helped improve generalized pain. She continues to have uncontrolled left shoulder pain. [facility] Surgical History S/P foot surgery, right H/O: hysterectomy H/O neck surgery Previous back surgery Physical Exam Vital Signs: Last Vital Signs Pulse 82 01/05/25 09:20 BP 120/80 01/05/25 09:20 Pulse Ox 98 01/05/25 09:20 Oxygen Delivery Method Room Air 01/05/25 09:20 BMI result Body Mass Index 26.1 Const Other: General: Comfortable Skin: No lesions seen MSK: No synovitis. Normal range of motion. Left shoulder anterior pain and posterior pain. Office Procedures AMB Joint Injection/Aspiration Joint Injection/Aspiration Details: Right shoulder joint Prep: site was prepped using aseptic technique Injected: 40 mg of, Kenalog, with 1 mL of and 1% plain lidocaine Procedure: Informed verbal consent was obtained. The patient tolerated the procedure well. Postprocedure protocol was discussed with patient. Procedure: The patient tolerated the procedure well Coding 98754 - Large joint Procedure code (CPT) selection complete Office Meds lidocaine (PF) 10 mg/mL (1 %) injection solution Performing Provider: Dany Mayer MD Performing Location: [facility] Administered by: Olena Freedman RN on 01/05/25 10:13 Dose Route Admin Location Dispensed Lot Number Expiration Date [facility] Generating Station Mechanic 1 mL Infiltration 2 mL [id number] 09/25/26 15546-443-75 [employer] Total Dispensed Waste 2 mL 50 % Kenalog 40 mg/mL suspension for injection Performing Provider: Dany Mayer MD Performing Location: [facility]ered by: Olena Freedman RN on 01/05/25 10:13 Dose Route Admin Location Dispensed Lot Number Expiration Date [employer] Generating Station Mechanic 40 mg intrabursal 1 mL [id number] 08/25/25 [address]-2 [employer] Total Dispensed Waste 1 mL 0 % Results Reviewed Results Reviewed: Ordering Physician: Dany Mayer MD Date of Service: 12/09/24 Procedure(s): MR shoulder LT wo con Accession Number(s): [id number] cc: Physician,Unknown ; Dany Mayer MD~ CLINICAL HISTORY: M75.82 - Other shoulder lesions, left shoulder --- Additional Notes or Special Instructions: r o rotator cuff tear Exam: MRI of the left shoulder without intravenous contrast. Comparison: Radiographs November 09, 2024. Findings: No rotator cuff tears are identified. Mild tendinopathy of the distal supraspinatus and infraspinatus tendons with areas of increased intrasubstance signal intensity. No discrete full-thickness or partial-thickness tear is evident. No tendon retraction or muscle atrophy is seen. Teres minor and subscapularis tendons are intact. There are no tears of the glenoid labrum. Specifically, no tear of the superior labrum or the anteroinferior labrum is identified. The tendon of the long head of the biceps is appropriately positioned within the bicipital groove. There is a type 2 acromion. Moderate degenerative change of the AC joint with mild edema/fluid within the subacromial/subdeltoid space. Mild glenohumeral joint DJD. Trace shoulder joint effusion. Impression: 1. Mild supraspinatus and infraspinatus tendinopathy without rotator cuff tear. 2. Glenohumeral joint and AC joint DJD with subacromial/subdeltoid bursitis. Assessment & Plan Assessment & Plan (1) Left shoulder pain: Comment: Chronic. Recurrent. Improved pain on nabumetone. She continues to have functional difficulties. She has temporary benefit with cortisone injections and PT. Failed multiple NSAIDs (meloxicam, Celebrex). MRI left shoulder reveals supraspinatus and infraspinatus tendinopathy without tear. She has glenohumeral and AC joint arthritis and subacromial/subdeltoid bursitis. She also has tra pezius strain contributing. We discussed conservative management. Code(s): M25.512 - Pain in left shoulder Category: Medical Qualifiers: Chronicity: chronic Qualified Code(s): M25.512 - Pain in left shoulder; G89.29 - Other chronic pain Plan: Patient received left glenohumeral joint cortisone injection Resume PT in 1 week Continue nabumetone 750 mg twice a day with food Return to clinic in 3 months. I will check labs for drug monitoring chronic NSAID at follow up appointment (2) Subacromial bursitis of left shoulder joint: Comment: Resolved with cortisone injection July 2024 Code(s): M75.52 - Bursitis of left shoulder Category: Medical Plan: See above (3) Tendinitis of left rotator cuff: Comment: Pain is uncontrolled. Failed cortisone injection. Partial relief with nabumetone. Code(s): M75.82 - Other shoulder lesions, left shoulder Category: Medical Plan: See above (4) terminal worker (current) use of non-steroidal anti-inflammatories (nsaid): Code(s): Z79.1 - detention (current) use of non-steroidal anti-inflammatories (NSAID) Category: Medical Plan: Labs for disease monitoring chronic NSAID ordered (5) Polymyalgia rheumatica: Comment: In remission off of prednisone. 07/2024 inflammatory markers normal. Code(s): M35.3 - Polymyalgia rheumatica Category: Medical Plan: Monitor clinically Return to clinic in 3 months (6) Fibromyalgia: Comment: Better controlled with higher dose of gabapentin and changing NSAID from Celebrex to nabumetone. Code(s): M79.7 - Fibromyalgia Category: Medical Plan: Defer management to PCP Orders: Orders AMB Joint Injection/Aspiration Today M75.50 - Bursitis of unspecified shoulder Medications: Refilled nabumetone Take with food 750 mg PO BID 60 tabs 2RF Coding Level of Care Code Est Pt Level 3 (77975) Complex EM visit Add On G2211 Diagnoses Chronic left shoulder pain M25.512; G89.29 Chronicity: chronic Subacromial bursitis of left shoulder joint M75.52 Tendinitis of left rotator cuff M75.82 detention (current) use of non-steroidal anti-inflammatories (nsaid) Z79.1 Polymyalgia rheumatica M35.3 Fibromyalgia M79.7 CPT Codes Coding - 12042 Large joint: 83343 - Large joint ([id number])
[2025-01-05 09:20] VITALS: BP 120/80; PULSE 82; O2SAT 98; BMI 26.1
--- OUTSIDE RECORDS SUMMARY | 2025-01-05 11:00 | XMS_ITS | Clinical Summary ---
Author Organization [facility] Address [address] [place] [address] Care Team Providers Care Technology Director Name Role Phone Unknown, Primary Care Provider [...] age to complete this topic Care Teams Technology Director Relationship Specialty Start Date End Date Unknown, PCP - General 01/07/23
--- OUTSIDE RECORDS SUMMARY | 2025-01-05 11:00 | XMS_ITS | Clinical Summary ---
Author Organization [facility] Address [address] [address] Care Team Providers Care Annual Giving Officer Name Role Phone Bonnie Nicole Primary Care Provider [phone] Allergies Active Allergy Reactions Criticality Noted Date [...] Adults 18 yrs or above (or HM Modifier)([facility]) 1982 Hepatitis C Virus Infection in Adolescents and Adults: Screening (or Modifier) ([facility]) 1982 DAE Screening: Once using ST OP-BANG Questionnaire for Adults with Conditions or high BMI([facility]) 1982 SDOH Screening Reminder: Tiffanie liliya for all adults ([facility]) 1982 Tobacco Smoking Cessation: i n Adults excluding Women: Behavioral and Pharmacotherapy Interventions ([facility]) 1982 DTaP/Tdap/Td Vaccines ([facility]) (1 - Tdap) 08/10/1983 Cervical Cancer Screenin 1-65 yrs of age (or Modifier) 1985 Cervical Cancer Screening: P ap every 3 yrs pts age 21-65 1985 Cervical Cancer: Pap Screeni ng with Modifier timing ([facility]) 1985 Cervical Cancer: hrHPV alone or with cotesting Pap for Pts 30-65yrs screening every 5yrs ([facility]) 1985 Colorectal Cancer Screening 45 -75 Yrs (or HM Modifier ) 2009 Colorectal Cancer: FLEXIBLE SIGMOIDOSCOPY Screening every 5 yrs 2009 Colorectal Cancer: Fecal Imm unochemical Test (FIT) Annually [facility] 2009 Colorectal Cancer: High-sens itivity gFOBT Screening Annually [facility] 2009 Colorectal Cancer: Stool Col oguard Screening every 3 yrs 2009 Colorectal Cancer:CT Colonography Screening every 5 yr s 2009 Breast Cancer: Screening Tiffanie liliya age 50-74 yrs (or HM Modifier)([facility]) 2014 Pneumococcal Vaccination Scr eening: Patients 50+ yrs of age ([facility]) (1 of 1 - PCV) 2014 Zoster/Shingles Vaccine Seri es Screening: Adults aged 18+ yrs (or HM Modifiers)([facility]) (1 of 2) 2014 COVID-19 Vaccine Screening: Initial Series and Booster Status ([facility]) (2023-25 season) 2023 Flu Vaccination: Yearly for ages 18mos through 64 years (or Modifier)([facility] ) 11/26/2024 RSV Vaccines (1 - 1-dose 75+ series) 08/10/2039 Medical Devices Not on file Insurance [facility] Care Teams Annual Giving Officer Relationship Specialty Start Date End Date Bonnie Nicole PA [address] [place] [id number] PCP - Financial Operations Clerk 01/24/19
--- OUTSIDE RECORDS SUMMARY | 2025-01-05 11:00 | XMS_ITS | Clinical Summary ---
Author Organization [facility] Address [address] [id number] Care Team Providers Care Social Media Manager Name Role Phone Unavailable Primary Care Provider [...] COVID-19 Vaccine ( - 2023-2 5 season) 2024 Influenza (#1) 2024 RSV (1 - 1-dose [...]
--- OUTSIDE RECORDS SUMMARY | 2025-01-05 11:00 | XMS_ITS | Clinical Summary ---
Author Organization [facility] Address [address] [place] [address] Care Team Providers Care Freezer Assistant Name Role Phone Bonnie Nicole Primary Care Provider [phone] Allergies Active Allergy Reactions Criticality Noted Date [...] Health Maintenance Due Date Last Done Comments Colonoscopy 1964 FOBT / Fit Test 1964 HIV Screening 1964 Sigmoidoscopy 1964 Pneumococcal Vaccine: 50+ Years (1 of 1 - PCV) 2014 Zoster Vaccines (1 of 2) 2014 DTaP,Tdap,and Td Vaccines (2 - Td or Tdap) 07/31/2021 08/01/2011 Alcohol/Substance Use Screening 04/28/2024 COVID-19 Vaccine (1 - 2023-2 5 season) 2024 Influenza Vaccine (#1) 2024 Cologuard 12/31/2025 12/31/2022, 12/31/2022 Colon Cancer Screening 12/31/2025 RSV Vaccine (60+ years old a nd patients) (1 - 1-dose 75+ series) 08/10/2039 Hepatitis B Vaccines Aged Out No long er eligible based on patient's age to complete this topic Insurance [facility] Care Teams Freezer Assistant Relationship Specialty Start Date End Date Bonnie Nicole [address] [place] [address] PCP - General 04/15/23
== END 2025-01-05 09:54 | disposition home or self-care (01) ==
LOC: HO.RHES 09:15
PROVIDERS: Visit Provider Internal Medicine Rheumatology
DX: M25.512 Pain in left shoulder (principal); G89.29 Other chronic pain; M75.52 Bursitis of left shoulder; M75.82 Other shoulder lesions, left shoulder; Z79.1 Long term (current) use of non-steroidal anti-inflammatories (NSAID); M35.3 Polymyalgia rheumatica; M79.7 Fibromyalgia
CPT/HCPCS: 20610; 99213

== ENCOUNTER → 2025-01-05 09:14 | Outpatient (BNVA) | payer OTHER, SELFPAY | PROVIDERS: Visit Provider Internal Medicine Rheumatology | DX: M25.512 Pain in left shoulder (principal); M75.52 Bursitis of left shoulder; M75.82 Other shoulder lesions, left shoulder; M35.3 Polymyalgia rheumatica; M79.7 Fibromyalgia; G89.29 Other chronic pain; Z79.1 Long term (current) use of non-steroidal anti-inflammatories (NSAID) | CPT/HCPCS: 20610; 99212; J2003; J3301 ==

== ENCOUNTER 2025-04-13 10:08 | Outpatient (AMB) | payer BC, SELFPAY ==
--- NOTE | 2025-04-13 10:16 | MHC.OFFVIS ---
Vital Signs 04/13/25 10:17 Height 5 ft 8 in Weight 171 lb 4 oz BMI 26.0 BP 120/80 Blood Pressure Location Rt brachial Position Sitting Pulse 65 Pulse Source Pulse Oximeter Pulse Oximetry (%) 99 Oxygen Delivery Method Room Air Intake Visit Reasons: 3months Intake Note: Patient presents for follow up on arthritis and bursitis. Accompanied by: Self / Same As Patient Allergies cefaclor (From [facility], 1928–1983) Allergy (Mild, Verified 04/13/25 10:16) Rash cillins Allergy (Mild, Uncoded 05/06/24 09:49) Hives scopalamine Allergy (Mild, Uncoded 05/06/24 09:49) deliriam HPI HPI 3months: Details: She started experiencing increased shoulder pain about a few weeks ago. Around the same time right trochanteric bursa pain became uncontrolled. Nabumetone helps. She has difficulty with function due to left shoulder pain and right hip pain. She was unable to tolerate physical therapy for shoulder strengthening due to increased pain afterwards. She has not been consistent with home exercise program recently. She joined [employer] Surgical History S/P foot surgery, right H/O: hysterectomy H/O neck surgery Previous back surgery Physical Exam Exam Exam: General: Comfortable Skin: No lesions seen MSK: Tender to palpate left subacromial region, anteriorly and posteriorly shoulder. No effusion. She has positive Auguste Roderick test left shoulder. Negative painful arc sign. She has pain in left shoulder with abduction, internal external rotation. Internal rotation is not full. Tender to palpate right trochanteric bursa. Normal hip range of motion. Vital Signs: Last Vital Signs Pulse 65 04/13/25 10:17 BP 120/80 04/13/25 10:17 Pulse Ox 99 04/13/25 10:17 Oxygen Delivery Method Room Air 04/13/25 10:17 BMI result Body Mass Index 26.0 Office Procedures AMB Joint Injection/Aspiration Coding - Large joint Procedure code (CPT) selection complete AMB Joint Injection/Aspiration Coding - Large joint Procedure code (CPT) selection complete Office Meds lidocaine (PF) 10 mg/mL (1 %) injection solution Performing Provider: Dany Mayer MD Performing Location: [facility] [place] [facility] Administered by: Dany Mayer MD on 04/13/25 11:46 Dose Route Admin Location Dispensed Lot Number Expiration Date ND Electronic Design Engineer 1 mL Infiltration left shoulder 2 mL [id number] 09/25/26 18474-984-22 FRESENIUS KABI Total Dispensed Waste 2 mL 50 % Kenalog 40 mg/mL suspension for injection Performing Provider: Dany Mayer MD Performing Location: [facility] [place] [facility] Administered by: Dany Mayer MD on 04/13/25 11:46 Dose Route Admin Location Dispensed Lot Number Expiration Date ND Electronic Design Engineer 40 mg intra-articular left shoulder 1 mL [id number] 10/25/26 [address]-1 [employer] Total Dispensed Waste 1 mL 0 % lidocaine (PF) 10 mg/mL (1 %) injection solution Performing Provider: Dany Mayer MD Performing Location: [facility] [place] [facility] Administered by: Dany Mayer MD on 04/13/25 15:33 Dose Route Admin Location Dispensed Lot Number Expiration Date ND Electronic Design Engineer 1 mL Infiltration right hip 2 mL [id number] 09/25/26 36871-139-84 FRESENIUS KABI Total Dispensed Waste 2 mL 50 % Kenalog 40 mg/mL suspension for injection Performing Provider: Dany Mayer MD Performing Location: [facility] [place] [facility] Administered by: Dany Mayer MD on 04/13/25 15:33 Dose Route Admin Location Dispensed Lot Number Expiration Date [facility] Electronic Design Engineer 40 mg intrabursal right hip 1 mL [id number] 10/25/26 [address]-3 [employer] Total Dispensed Waste 1 mL 0 % Results Reviewed Results Reviewed: Ordering Physician: Dany Mayer MD Date of Service: 12/09/24 Procedure(s): MR shoulder LT wo con Accession Number(s): [id number] cc: Physician,Unknown ; Dany Mayer MD~ CLINICAL HISTORY: M75.82 - Other shoulder lesions, left shoulder --- Additional Notes or Special Instructions: r o rotator cuff tear Exam: MRI of the left shoulder without intravenous contrast. Comparison: Radiographs November 09, 2024. Findings: No rotator cuff tears are identified. Mild tendinopathy of the distal supraspinatus and infraspinatus tendons with areas of increased intrasubstance signal intensity. No discrete full-thickness or partial-thickness tear is evident. No tendon retraction or muscle atrophy is seen. Teres minor and subscapularis tendons are intact. There are no tears of the glenoid labrum. Specifically, no tear of the superior labrum or the anteroinferior labrum is identified. The tendon of the long head of the biceps is appropriately positioned within the bicipital groove. There is a type 2 acromion. Moderate degenerative change of the AC joint with mild edema/fluid within the subacromial/subdeltoid space. Mild glenohumeral joint DJD. Trace shoulder joint effusion. Impression: 1. Mild supraspinatus and infraspinatus tendinopathy without rotator cuff tear. 2. Glenohumeral joint and AC joint DJD with subacromial/subdeltoid bursitis. Assessment & Plan Assessment & Plan (1) Left shoulder pain: Comment: Chronic. Recurrent. Improved pain on nabumetone. Temporary benefit with cortisone injection. She continues to have functional difficulties. She was unable to tolerate physical therapy due to increased shoulder pain afterwards, which lasted a few weeks. Failed multiple NSAIDs (meloxicam, Celebrex). MRI left shoulder 11/2024 reveals supraspinatus and infraspinatus tendinopathy without tear. She has glenohumeral and AC joint arthritis and subacromial/subdeltoid bursitis. I will treat her symptoms with cortisone injection. I recommend that she have orthopedic evaluation for consideration of surgical options, arthroscopic procedure due to the fact that she has significant functional limitations with recurrence of pain and that conservative measures are only providing her temporary relief. Code(s): M25.512 - Pain in left shoulder Category: Medical Qualifiers: Chronicity: chronic Qualified Code(s): M25.512 - Pain in left shoulder; G89.29 - Other chronic pain Plan: Patient received left glenohumeral joint cortisone injection Resume home exercise program learned from PT Continue nabumetone 750 mg twice a day with food I will check labs for drug monitoring chronic NSAID [facility] referral Return to clinic in 3 months (2) Subacromial bursitis of left shoulder joint: Comment: Recurrent. She has temporary benefit with cortisone injections. Last injection in subacromial space was July 2024 Code(s): M75.52 - Bursitis of left shoulder Category: Medical Plan: If she continues to have pain after left glenohumeral joint intra-articular cortisone injection, I will consider injection in left subacromial space. Patient will call office with clinical update. (3) Tendinitis of left rotator cuff: Comment: Pain is uncontrolled. Cortisone injections have providing temporary relief. Partial relief with nabumetone. Code(s): M75.82 - Other shoulder lesions, left shoulder Category: Medical Plan: See above (4) terminal manager (current) use of non-steroidal anti-inflammatories (nsaid): Code(s): Z79.1 - terminal manager (current) use of non-steroidal anti-inflammatories (NSAID) Category: Medical Plan: Labs for disease monitoring chronic NSAID ordered (5) Polymyalgia rheumatica: Comment: In remission off of prednisone. 07/2024 inflammatory markers normal. Code(s): M35.3 - Polymyalgia rheumatica Category: Medical Plan: Monitor clinically Return to clinic in 3 months (6) Fibromyalgia: Comment: Better controlled with higher dose of gabapentin and changing NSAID from Celebrex to nabumetone. Code(s): M79.7 - Fibromyalgia Category: Medical Plan: Defer management to PCP Orders: Orders Aspartate Amino Transferase Today Z79.1 - terminal manager (current) use of non-steroidal anti-inflammatories (NSAID) Creatinine Today Z79.1 - terminal manager (current) use of non-steroidal anti-inflammatories (NSAID) AMB Joint Injection/Aspiration Today G89.29 - Other chronic pain, M25.512 - Pain in left shoulder Alanine Aminotransferase Today Z79.1 - penitentiary (current) use of non-steroidal anti-inflammatories (NSAID) AMB Joint Injection/Aspiration Today M70.61 - Trochanteric bursitis, right hip Referrals Orthopedics Referral G89.29 - Other chronic pain, M25.512 - Pain in left shoulder, M75.52 - Bursitis of left shoulder, M75.82 - Other shoulder lesions, left shoulder Medications: Changed From nabumetone Take with food 750 mg PO BID 60 tabs 2RF To nabumetone Take with food 750 mg PO BID 180 tabs 1RF 90 days Coding Level of Care Code Est Pt Level 4 (18438) Add On Problem Visit Only Diagnoses Chronic left shoulder pain M25.512; G89.29 Chronicity: chronic Subacromial bursitis of left shoulder joint M75.52 Tendinitis of left rotator cuff M75.82 terminal manager (current) use of non-steroidal anti-inflammatories (nsaid) Z79.1 Polymyalgia rheumatica M35.3 Fibromyalgia M79.7 CPT Codes Coding - 19055 Large joint: 09978 - Large joint ([id number]) Coding - 33113 Large joint: 68727 - Large joint ([id number])
[2025-04-13 10:17] VITALS: BP 120/80; PULSE 65; O2SAT 99; BMI 26.0
--- OUTSIDE RECORDS SUMMARY | 2025-04-13 12:22 | XMS_ITS | Clinical Summary ---
Author Organization [facility] Address [address] [place] [address] Care Team Providers Care Dust Puller Name Role Phone Bonnie Nicole Primary Care Provider [phone] Allergies Active Allergy Reactions Criticality Noted Date [...] 01/24/2019 11:28 AM EDT Plan of Treatment Not on file Medical Devices Not on file Insurance [facility] Care Teams Dust Puller Relationship Specialty Start Date End Date Bonnie Nicole PA [address] [place] [address] PCP - Publicity Manager 01/24/19
--- OUTSIDE RECORDS SUMMARY | 2025-04-13 12:22 | XMS_ITS | Clinical Summary ---
Author Organization [facility] Prior to 09/25/24 Address [address] [place] [address] Care Team Providers Care Pay Clerk Name Role Phone Unknown, Primary Care Provider [...] age to complete this topic Care Teams Pay Clerk Relationship Specialty Start Date End Date Unknown, PCP - General 01/07/23
--- OUTSIDE RECORDS SUMMARY | 2025-04-13 12:22 | XMS_ITS | Clinical Summary ---
Author Organization [facility] Address [address] [id number] Care Team Providers Care Mercerizing Range Controller Name Role Phone Unavailable Primary Care Provider [...] of 2) 2014 COVID-19 Vaccine ( - 2024-2 6 season) 2024 Influenza (#1) 2024 RSV (1 [...]
--- OUTSIDE RECORDS SUMMARY | 2025-04-13 12:22 | XMS_ITS | Clinical Summary ---
Author Organization [facility] Address [address] [place] [address] Care Team Providers Care Stock Transfer Clerk Name Role Phone Bonnie Nicole Primary Care Provider [phone] Allergies Active Allergy Reactions Criticality Noted Date [...] Smear 1964 Pap Smear 1964 Sigmoidoscopy 1964 Mammogram 2004 Pneumococcal Vaccine: 50+ Years (1 of 1 - PCV) 2014 Zoster Vaccines (1 of 2) 2014 DTaP,Tdap,and Td Vaccines (2 - Td or Tdap) 07/31/2021 08/01/2011 Alcohol/Substance Use Screening 04/28/2024 Influenza Vaccine (#1) 2024 COVID-19 Vaccine (1 - 2024-2 6 season) 2024 Cologuard 12/31/2025 12/31/2022, 12/31/2022 Colon Cancer Screening 12/31/2025 RSV Vaccine (60+ years old a nd patients) (1 - 1-dose 75+ series) 08/10/2039 Hepatitis B Vaccines Aged Out No long er eligible based on patient's age to complete this topic Insurance [facility] Care Teams Stock Transfer Clerk Relationship Specialty Start Date End Date Bonnie Nicole [address] [place] [address] PCP - General 04/15/23
== END 2025-04-13 10:57 | disposition home or self-care (01) ==
LOC: HO.RHES 10:09
PROVIDERS: Visit Provider Internal Medicine Rheumatology
DX: M25.512 Pain in left shoulder (principal); M70.61 Trochanteric bursitis, right hip; G89.29 Other chronic pain; M75.52 Bursitis of left shoulder; M75.82 Other shoulder lesions, left shoulder; Z79.1 Long term (current) use of non-steroidal anti-inflammatories (NSAID); M35.3 Polymyalgia rheumatica; M79.7 Fibromyalgia
CPT/HCPCS: 20610; 99214

== ENCOUNTER 2025-04-13 10:08 | Outpatient (REF) | payer BC, SELFPAY ==
[2025-04-13 15:02] LABS: Alanine Aminotransferase 28 U/L (0-31); Aspartate Amino Transferase 29 U/L (5-31); Estimated Glomerular Filt Rate > 60
== END 2025-04-13 10:09 | disposition home or self-care (01) ==
LOC: HO.HKASLDS 10:08
PROVIDERS: PCP Internal Medicine; Visit Provider Internal Medicine Rheumatology
DX: G89.29 Other chronic pain (principal); M75.52 Bursitis of left shoulder; M75.82 Other shoulder lesions, left shoulder; M35.3 Polymyalgia rheumatica; M79.7 Fibromyalgia; Z51.81 Encounter for therapeutic drug level monitoring; Z79.1 Long term (current) use of non-steroidal anti-inflammatories (NSAID)
CPT/HCPCS: 20610; 36415; 82565; 84450; 84460; J2003; J3301